=== PATIENT | male | born 1965 | race Two or more races ===

== ENCOUNTER 2020-01-27 18:52 | Inpatient (IN) | payer MEDICAID, OTHER ==
[~2020-01-27] VITALS: Ht 160 cm; Wt 75.1 kg
--- NOTE | 2020-01-27 18:51 | Emergency Room Report ---
History of Present Illness General Chief Complaint: General Complaint Source: Patient, Medical Record, PMD Present Illness HPI 54-year-old male history of head trauma, status post cranial evacuation, patient found to be hyponatremic now patient found to be potentially urinating more than usual they are concerned that patient may have developed diabetes insipidus, unknown alleviating factors aggravated by his head injury severity is moderate, constant patient was sent in by his PCP for evaluation and to have electrolyte checks. 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 - UNK Patient History Past Medical History: see triage record Reviewed Nursing Documentation: PMH: Agreed; PSxH: Agreed Review of Systems All Other Systems: negative except mentioned in HPI Physical Exam Vital Signs Date Time Temp Pulse Resp B/P (MAP) Pulse Ox O2 Delivery O2 Flow Rate FiO2 01/27/20 18:45 98.4 83 18 110/75 (87) 93 Room Air Sp02 EP Interpretation: reviewed, normal General Appearance: no apparent distress, alert Head: other - Dressing wound noted Eyes: bilateral eye PERRL, bilateral eye EOMI ENT: uvula midline, moist mucus membranes Neck: supple, supple/symm/no masses, other - Patient in a c-collar Respiratory: lungs clear, no respiratory distress, no retraction, no accessory muscle use Cardiovascular #1: normal peripheral pulses, regular rate, rhythm, no edema, no gallop, no murmur Gastrointestinal: non tender, soft, no guarding, no rebound Musculoskeletal: normal inspection Neurologic: alert, responsive Psychiatric: mood/affect normal Skin: no rash, warm/dry Medical Decision Making Diagnostic Impression: Primary Impression: Electrolyte abnormality Additional Impressions: Dehydration Cervical spine fracture Qualified Codes: S12.690G - Other displaced fracture of seventh cervical vertebra, subsequent encounter for fracture with delayed healing ER Course 54-year-old male presents with concerns for electrolyte abnormalities. Patient with chronic stable subdural known from [facility] Plan for admission, hydration, patient lytes will be continued to be followed given concerns for developing electrolyte abnormalities. Patient admitted to Dr. Krueger Laboratory Tests Test 01/27/20 19:00 01/27/20 19:48 White Blood Count 6.7 K/UL (4.8-10.8) Red Blood Count 3.43 M/UL (4.70-6.10) L Hemoglobin 9.9 G/DL (14.2-18.0) L Hematocrit 30.6 % (42.0-52.0) L Mean Corpuscular Volume 89 FL (80-99) Mean Corpuscular Hemoglobin 29.0 PG (27.0-31.0) Mean Corpuscular Hemoglobin Concent 32.5 G/DL (32.0-36.0) Red Cell Distribution Width 14.1 % (11.6-14.8) Platelet Count 613 K/UL (150-450) H Mean Platelet Volume 4.7 FL (6.5-10.1) L Neutrophils (%) (Auto) 60.7 % (45.0-75.0) Lymphocytes (%) (Auto) 24.8 % (20.0-45.0) Monocytes (%) (Auto) 6.6 % (1.0-10.0) Eosinophils (%) (Auto) 6.7 % (0.0-3.0) H Basophils (%) (Auto) 1.2 % (0.0-2.0) Sodium Level 135 MMOL/L (136-145) L Potassium Level 3.8 MMOL/L (3.5-5.1) Chloride Level 100 MMOL/L (98-107) Carbon Dioxide Level 29 MMOL/L (21-32) Anion Gap 7 mmol/L (5-15) Blood Urea Nitrogen 6 mg/dL (7-18) L Creatinine 0.9 MG/DL (0.55-1.30) Estimated Glomerular Filtration Rate > 60 mL/min (>60) Glucose Level 135 MG/DL (74-106) H Calcium Level 9.5 MG/DL (8.5-10.1) Phosphorus Level 4.1 MG/DL (2.5-4.9) Magnesium Level 2.1 MG/DL (1.8-2.4) Total Bilirubin 0.2 MG/DL (0.2-1.0) Aspartate Amino Transferase (AST) 24 U/L (15-37) Alanine Aminotransferase (ALT) 57 U/L (12-78) Alkaline Phosphatase 158 U/L (46-116) H Troponin I 0.000 ng/mL (0.000-0.056) Pro-B-Type Natriuretic Peptide 18 pg/mL (0-125) Total Protein 7.8 G/DL (6.4-8.2) Albumin 2.8 G/DL (3.4-5.0) L Globulin 5.0 g/dL Albumin/Globulin Ratio 0.6 (1.0-2.7) L Lipase 177 U/L (73-393) Thyroid Stimulating Hormone (TSH) 2.700 uiU/mL (0.358-3.740) Free Thyroxine 0.96 NG/DL (0.76-1.46) Free Triiodothyronine 1.8 pg/mL (2.3-4.2) L Cortisol Pending Urine Color Yellow Urine Appearance Slightly cloudy Urine pH 5 (4.5-8.0) Urine Specific [place] 1.025 (1.005-1.035) Urine Protein 1+ (NEGATIVE) H Urine Glucose (UA) Negative (NEGATIVE) Urine Ketones Negative (NEGATIVE) Urine Blood Negative (NEGATIVE) Urine Nitrite Negative (NEGATIVE) Urine Bilirubin Negative (NEGATIVE) Urine Urobilinogen 4 MG/DL (0.0-1.0) H Urine Leukocyte Esterase 1+ (NEGATIVE) H Urine RBC 0-2 /HPF (0 - 0) H Urine WBC 0-2 /HPF (0 - 0) Urine Squamous Epithelial Cells None /LPF (NONE/OCC) Urine Amorphous Sediment Moderate /LPF (NONE) H Urine Bacteria Few /HPF (NONE) Urine Mucus Many /LPF (NONE/OCC) H Urine Osmolality 825 mOsm/kg (429-449) H Urine Random Sodium 121 mmol/L (20-110) H Urine Potassium Timed 55 mmol/L (12-62) Microbiology Date/Time Source Procedure Growth Status 01/27/20 19:00 Nasopharynx SARS-CoV-2 RdRp Gene Assay - Final Complete EKG Diagnostic Results EKG Time: 19:07 EP Interpretation: NSR, rate 84, QTc 47, no acute ST elevations, normal axis Rhythm Strip Diag. Results Rhythm Strip Time: 19:16 EP Interpretation: yes Rate: 86 Rhythm: NSR, no PVC's, no ectopy Chest X-Ray Diagnostic Results Chest X-Ray Diagnostic Results : Chest X-Ray Ordered: Yes # of Views/Limited/Complete: 1 View Indication: Chest Pain EP Interpretation: Yes Interpretation: no consolidation, no effusion, no pneumothorax, no acute cardiopulmonary disease Impression: No acute disease Electronically Signed by: Ziyad Cantu MD CT/MRI/US Diagnostic Results CT/MRI/US Diagnostic Results : Impression CT C-spine: C7/T1 fracture Procedure: CT Head no Contrast EXAM: CT Head Without Intravenous Contrast CLINICAL HISTORY: PAIN TECHNIQUE: Axial computed tomography images of the head/brain without intravenous contrast. CTDI is 53.4 mGy and DLP is 1098.9 mGy-cm. One or more of the following dose reduction techniques were used: automated exposure control, adjustment of the mA and/or kV according to patient size, use of iterative reconstruction technique. COMPARISON: No relevant prior studies available. FINDINGS: Brain: No acute infarct or hemorrhage. Midline shift: Mild leftward midline shift of approximately 3 mm. Ventricles: Unremarkable. No ventriculomegaly. Bones/joints: Status post right craniectomy with cranioplasty. There is a small chronic subdural hematoma underlying the craniotomy defect measured to 7 mm. There is moderate amount of fluid and gas seen in internal and external to the cranioplasty. Suspected remote fracture involving the right frontal calvarium and superior right orbit. Suspect remote fracture involving the anterior and posterolateral right maxillary antrum. Soft tissues: Unremarkable. Sinuses: Mild mucosal thickening the paranasal sinuses. Mastoid air cells: Partial opacification of mastoid air cells. IMPRESSION: 1. Status post right craniectomy with cranioplasty. There is a small chronic subdural hematoma underlying the craniotomy defect measuring up to 7 mm. There is moderate amount of fluid and gas seen in internal and external to the cranioplasty. 2. Mild leftward midline shift of approximately 3 mm. Dictated By: Harsh Ellis MD Electronically Signed By: Harsh Ellis MD Signed Date/Time 01/27/202015 CC: Ziyad Cantu MD Last Vital Signs Date Time Temp Pulse Resp B/P (MAP) Pulse Ox O2 Delivery O2 Flow Rate FiO2 01/27/20 18:45 98.4 83 18 110/75 (87) 93 Room Air Disposition: ADMITTED INPATIENT Condition: Stable Ziyad Cantu MD Jan 27, 2020 18:51
[2020-01-27] MEDS ORDERED: ACETAMINOPHEN325 M1 ORAL (18:58)
[2020-01-27] MEDS ORDERED: TYLENOL EXTRA500 MG ORAL (18:58)
[2020-01-27] MEDS ORDERED: LEVETIRACETAM500 MG ORAL (18:58)
[2020-01-27] MEDS ORDERED: NORCO 5-325 TA1 EAC1 ORAL (18:58)
--- NOTE | 2020-01-27 19:05 | NUR ---
Nurse Note: Pt arrived by ambulance from [facility] s/p fall 3 weeks ago. 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 Pt stated he landed on his head and LOC. Pt arrived with yaya on RT side of head, c-collar. Pt was sent by Dr. Huertas for further evulation. IV esblashed RT AC 20 guage, blood collected and sent to lab. Urine pending. All safety measures met; will continue to redd.
[2020-01-27 19:10] LABS: BASOPHILS % (AUTO) 1.2 % (0.0-2.0); EOSINOPHILS % (AUTO) 6.7 % (0.0-3.0); HEMATOCRIT 30.6 % (42.0-52.0); HEMOGLOBIN 9.9 G/DL (14.2-18.0); LYMPHOCYTES % (AUTO) 24.8 % (20.0-45.0); MEAN CORPUSCULAR VOLUME 89 FL (80-99); MONOCYTES % (AUTO) 6.6 % (1.0-10.0); NEUTROPHILS % (AUTO) 60.7 % (45.0-75.0); PLATELET COUNT 613 K/UL (150-450); RED BLOOD COUNT 3.43 M/UL (4.70-6.10); RED CELL DISTRIBUTION WIDTH 14.1 % (11.6-14.8); WHITE BLOOD COUNT 6.7 K/UL (4.8-10.8)
[2020-01-27 19:15] VITALS: BP 110/75
[2020-01-27 19:25] LABS: ANION GAP 7 mmol/L (5-15); BLOOD UREA NITROGEN 6 mg/dL (7-18); CALCIUM 9.5 MG/DL (8.5-10.1); CARBON DIOXIDE 29 MMOL/L (21-32); CHLORIDE 100 MMOL/L (98-107); CREATININE 0.9 MG/DL (0.55-1.30); POTASSIUM 3.8 MMOL/L (3.5-5.1); SODIUM 135 MMOL/L (136-145)
[2020-01-27 19:39] LABS: ALANINE AMINOTRANSFERASE 57 U/L (12-78); ALBUMIN 2.8 G/DL (3.4-5.0); ALBUMIN/GLOBULIN RATIO 0.6 (1.0-2.7); ALKALINE PHOSPHATASE 158 U/L (46-116); ASPARTATE AMINO TRANSFERASE 24 U/L (15-37); BILIRUBIN,TOTAL 0.2 MG/DL (0.2-1.0); PHOSPHORUS 4.1 MG/DL (2.5-4.9)
[2020-01-27 19:55] LABS: APPEARANCE,URINE SLIGHTLY CLOUDY; BILIRUBIN, URINE NEGATIVE (NEGATIVE); GLUCOSE, URINE (UA) NEGATIVE (NEGATIVE); KETONES,URINE NEGATIVE (NEGATIVE); LEUKOCYTE ESTERASE ,URINE 1+ (NEGATIVE); NITRITE,URINE NEGATIVE (NEGATIVE); PH,URINE 5 (4.5-8.0); PROTEIN,URINE 1+ (NEGATIVE); UROBILINOGEN,URINE 4 MG/DL (0.0-1.0)
[2020-01-27 19:57] LABS: COLOR,URINE YELLOW
--- NOTE | 2020-01-27 20:17 | Diagnostic Imaging Report ---
EXAM: CT Head Without Intravenous Contrast CLINICAL HISTORY: PAIN TECHNIQUE: Axial computed tomography images of the head/brain without intravenous contrast. CTDI is 53.4 mGy and DLP is 1098.9 mGy-cm. One or more of the following dose reduction techniques were used: automated exposure control, adjustment of the mA and/or kV according to patient size, use of iterative reconstruction technique. COMPARISON: No relevant prior studies available. FINDINGS: Brain: No acute infarct or hemorrhage. Midline shift: Mild leftward midline shift of approximately 3 mm. Ventricles: Unremarkable. No ventriculomegaly. Bones/joints: Status post right craniectomy with cranioplasty. There is a small chronic subdural hematoma underlying the craniotomy defect measured to 7 mm. There is moderate amount of fluid and gas seen in internal and external to the cranioplasty. Suspected remote fracture involving the right frontal calvarium and superior right orbit. Suspect remote fracture involving the anterior and posterolateral right maxillary antrum. Soft tissues: Unremarkable. Sinuses: Mild mucosal thickening the paranasal sinuses. Mastoid air cells: Partial opacification of mastoid air cells. IMPRESSION: 1. Status post right craniectomy with cranioplasty. There is a small chronic subdural hematoma underlying the craniotomy defect measuring up to 7 mm. There is moderate amount of fluid and gas seen in internal and external to the cranioplasty. 2. Mild leftward midline shift of approximately 3 mm.
--- NOTE | 2020-01-27 20:19 | Diagnostic Imaging Report ---
ADDENDUM - Added by Harsh Ellis MD on 01/27/2020 8:39 PM (-07:00) Fracture of the spinous process at C7 and T1. EXAM: CT Cervical Spine Without Intravenous Contrast CLINICAL HISTORY: PAIN TECHNIQUE: Axial computed tomography images of the cervical spine without intravenous contrast. CTDI is 53.40 mGy and DLP is 1098.90 mGy-cm. One or more of the following dose reduction techniques were used: automated exposure control, adjustment of the mA and/or kV according to patient size, use of iterative reconstruction technique. COMPARISON: No relevant prior studies available. FINDINGS: Vertebrae: No acute fracture or traumatic malalignment. Straightening of the normal cervical lordosis, likely positional. Discs/spinal canal/neural foramina: No acute findings. No significant spinal canal or neuroforaminal stenosis. Soft tissues: Unremarkable. IMPRESSION: No acute findings in the cervical spine. <MYCVCSECTION> Communications: 01/27/20 20:37 Call From [facility] on 01/26 20:36 (-07:00) 01/27/20 20:42 Verify Receipt Verified receipt with NIGHAT CANNON in the ER for DR PADILLA on 01/26 20:42 (-07:00)
--- NOTE | 2020-01-27 20:42 | Consultation ---
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 He had~multiple cortes to bilateral forearms (right >~left), anterior neck and face. Had a right epidural hematoma on CT scan. Taken to OR at [facility] for R decompressive hemicraniectomy and evacuation of hematoma. [facility] bone [facility]. He became hypotensive and coded intraoperatively - CPR was performed and after successful resuscitation the patient was transferred to the SICU in stable condition.~The patient's post operative course was unremarkable for any complications.~He was extubated on 01/06/2020 and was transferred from the SICU to the surgical floor on 01/11/2020. He progressed well and was taken back to the OR on 01/14/2020 for right-sided cranioplasty. The patient tolerated this procedure well and was transferred back to the floor in stable condition. He remained in cervical c-collar given his cervical spine fractures. Patient was subsequently discharged on~01/16/2020~in stable condition He started to become confused, reporting headache and dizziness, was found to be hyponatremic. Patient reports urinating all the time. Feels lightheaded. Remains on C collar Allergies: Coded Allergies: No Known Allergies (Unverified , 01/27/20) Medication History Scheduled Levetiracetam* (Levetiracetam*), 500 MG ORAL TWICE A DAY, (Reported) Scheduled PRN Acetaminophen* (Tylenol Extra Strength*), 500 MG ORAL Q6H PRN for Mild Pain/ Temp > 100.5, (Reported) Hydrocodone Bit/Acetaminophen 5-325* ([place] 5-325 Tablet*), 1 TAB ORAL Q6H PRN for FOR PAIN, (Reported) Patient History Healthcare decision maker Resuscitation status Advanced Directive on File Physical Exam General Appearance: no apparent distress Lines, tubes and drains: peripheral HEENT: normocephalic Neck: supple, muscle spasm, pain on motion, tenderness Respiratory/Chest: chest wall non-tender, lungs clear Cardiovascular/Chest: normal peripheral pulses Abdomen: normal bowel sounds Extremities: normal range of motion Skin Exam: normal pigmentation 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, no motor/sensory deficits Musculoskeletal: normal muscle bulk Last 24 Hour Vital Signs Date Time Temp Pulse Resp B/P (MAP) Pulse Ox O2 Delivery O2 Flow Rate FiO2 01/27/20 19:15 98.4 83 18 110/75 93 Room Air 01/27/20 19:15 83 18 Room Air 01/27/20 18:45 98.4 83 18 110/75 (87) 93 Room Air Laboratory Tests Test 01/27/20 19:00 01/27/20 19:48 White Blood Count 6.7 K/UL (4.8-10.8) Red Blood Count 3.43 M/UL (4.70-6.10) L Hemoglobin 9.9 G/DL (14.2-18.0) L Hematocrit 30.6 % (42.0-52.0) L Mean Corpuscular Volume 89 FL (80-99) Mean Corpuscular Hemoglobin 29.0 PG (27.0-31.0) Mean Corpuscular Hemoglobin Concent 32.5 G/DL (32.0-36.0) Red Cell Distribution Width 14.1 % (11.6-14.8) Platelet Count 613 K/UL (150-450) H Mean Platelet Volume 4.7 FL (6.5-10.1) L Neutrophils (%) (Auto) 60.7 % (45.0-75.0) Lymphocytes (%) (Auto) 24.8 % (20.0-45.0) Monocytes (%) (Auto) 6.6 % (1.0-10.0) Eosinophils (%) (Auto) 6.7 % (0.0-3.0) H Basophils (%) (Auto) 1.2 % (0.0-2.0) Sodium Level 135 MMOL/L (136-145) L Potassium Level 3.8 MMOL/L (3.5-5.1) Chloride Level 100 MMOL/L (98-107) Carbon Dioxide Level 29 MMOL/L (21-32) Anion Gap 7 mmol/L (5-15) Blood Urea Nitrogen 6 mg/dL (7-18) L Creatinine 0.9 MG/DL (0.55-1.30) Estimat Glomerular Filtration Rate > 60 mL/min (>60) Glucose Level 135 MG/DL (74-106) H Calcium Level 9.5 MG/DL (8.5-10.1) Phosphorus Level 4.1 MG/DL (2.5-4.9) Magnesium Level 2.1 MG/DL (1.8-2.4) Total Bilirubin 0.2 MG/DL (0.2-1.0) Aspartate Amino Transf (AST/SGOT) 24 U/L (15-37) Alanine Aminotransferase (ALT/SGPT) 57 U/L (12-78) Alkaline Phosphatase 158 U/L (46-116) H Troponin I 0.000 ng/mL (0.000-0.056) Pro-B-Type Natriuretic Peptide 18 pg/mL (0-125) Total Protein 7.8 G/DL (6.4-8.2) Albumin 2.8 G/DL (3.4-5.0) L Globulin 5.0 g/dL Albumin/Globulin Ratio 0.6 (1.0-2.7) L Lipase 177 U/L (73-393) Thyroid Stimulating Hormone (TSH) 2.700 uiU/mL (0.358-3.740) Free Thyroxine 0.96 NG/DL (0.76-1.46) Free Triiodothyronine 1.8 pg/mL (2.3-4.2) L Cortisol Pending Urine Color Yellow Urine Appearance Slightly cloudy Urine pH 5 (4.5-8.0) Urine Specific [place] 1.025 (1.005-1.035) Urine Protein 1+ (NEGATIVE) H Urine Glucose (UA) Negative (NEGATIVE) Urine Ketones Negative (NEGATIVE) Urine Blood Negative (NEGATIVE) Urine Nitrite Negative (NEGATIVE) Urine Bilirubin Negative (NEGATIVE) Urine Urobilinogen 4 MG/DL (0.0-1.0) H Urine Leukocyte Esterase 1+ (NEGATIVE) H Urine RBC 0-2 /HPF (0 - 0) H Urine WBC 0-2 /HPF (0 - 0) Urine Squamous Epithelial Cells None /LPF (NONE/OCC) Urine Amorphous Sediment Moderate /LPF (NONE) H Urine Bacteria Few /HPF (NONE) Urine Mucus Many /LPF (NONE/OCC) H Urine Osmolality 825 mOsm/kg (429-449) H Urine Random Sodium 121 mmol/L (20-110) H Urine Potassium Timed 55 mmol/L (12-62) Microbiology Date/Time Source Procedure Growth Status 7/27/20 19:00 Nasopharynx SARS-CoV-2 RdRp Gene Assay - Final Complete Height (Feet): 5 Height (Inches): 3.00 Weight (Pounds): 175 Objective Narrative Tenderness in cervical paraspinal muscles Tinel positive on mariya occipital notch Assessment/Plan Problem List: (1) Electrolyte abnormality ICD Codes: E87.8 - Other disorders of electrolyte and fluid balance, not elsewhere classified SNOMED: 359719750 (2) Cervical spine fracture ICD Codes: S12.9XXA - Fracture of neck, unspecified, initial encounter SNOMED: 319906990 Qualifiers: Qualified Codes: S12.690G - Other displaced fracture of seventh cervical vertebra, subsequent encounter for fracture with delayed healing (3) Dehydration ICD Codes: E86.0 - Dehydration SNOMED: 06337937 (4) Pain ICD Codes: R52 - Pain, unspecified SNOMED: 26027141 Assessment/Plan: IMPRESSION: 1. PTRAUMATIC BRAIN INJURY WITH TRAUMATIC EPIDURAL HEMORRHAGE, HEMORRHAGIC CONTUSSION 2.. POSTCONCUSSIVE SYNDROME 3.. TRAUMATIC DISEQUELIBRIUM SYNDROME 4.. POSTCONCUSSIVE HEADACHE 5.. OCCIPITAL NEURALGIA, BILATERAL 6.. NECK SPASMS WITH BILLATERAL PARESTHESIAS R/O RADICULOPATHY 7. ENCEPHALOPATHY 2/2 HYPONATREMIA. Based on the mechanism of injury and denial of previous injury with high medical probability, the accident was the cause of the injury and related symptoms. RECOMMENDATIONS: 1. IVFs and sodium management per nephrology. 2. maintain hydration 3. Monitor orthostatics 4.. Greater and lesser occipital nerve block and Trigger point injections 5. Advance MRI technique including 3 Ericka MRI of the brain without contrast with SWI and DTI and volumetric analysis 6. VAT combo with ENG and vestibular exercises Ziyad Baltazar MD Jan 27, 2020 20:42
--- NOTE | 2020-01-27 21:00 | NUR ---
ED Nurse Note: Pt's own medication placed in lock box and signed into log, endorsed to ELICIA Boles
--- NOTE | 2020-01-27 21:05 | NUR ---
TRANSFER TO FLOOR: Patient transferred to as ordered, per Dr Krueger. Report given to ELICIA Boles. Belongings and medications given to . Family and or S/O informed of transfer.
[2020-01-27 21:40] VITALS: BP 111/65
[2020-01-27] MEDS ORDERED: Docusate 100mg cap ORAL PRN (21:45)
--- NOTE | 2020-01-27 21:50 | NUR ---
NURSE NOTES: Received report from ELICIA Odonnell. Patient arrived from ED via gurney. A&Ox4. On room air with no signs of distress or SOB. VSS. Right AC IV intact and patent. Patient is ambulatory. Post-surgical dressings noted on scalp. Healing electrical cortes/scars on bilat forearms. Skin tear on R lower back noted. Home meds sent to pharmacy per ELICIA Odonnell. Belongings accounted for. Bed locked and in lowest position. Call light in reach. Orders received from Dr. Krueger. Will follow plan of care.
[2020-01-28] VITALS: BP 124/71
[2020-01-28 04:00] VITALS: BP 118/76
--- NOTE | 2020-01-28 07:04 | NUR ---
NURSE NOTES: Patient output this morning 250cc. Performed bladder scan which showed 13mL. Spoke with Dr. Krueger. New orders carried out.
--- NOTE | 2020-01-28 07:35 | NUR ---
NURSE NOTES: WALKING ROUNDS DONE WITH NIGHT RN. PATIENT ASLEEP BUT AROUSABLE. HEAD DRSG IN PLACE WITH MESH; C/D/I. DENIES PAIN. DISCUSSED PLAN OF CARE FOR THE DAY. VERBALIZED UNDERSTANDING.BED IN LOW AND LOCKED POSITION. SIDE RAILS PADDED. NO EVIDENCE OF SEIZURE ACTIVITY THUS FAR.
--- NOTE | 2020-01-28 07:39 | NUR ---
HAND-OFF: Report given to ELICIA Yusuf.
[2020-01-28 08:00] VITALS: BP 102/66
[2020-01-28 08:49] LABS: BASOPHILS % (AUTO) 1.2 % (0.0-2.0); EOSINOPHILS % (AUTO) 6.1 % (0.0-3.0); HEMATOCRIT 31.7 % (42.0-52.0); LYMPHOCYTES % (AUTO) 14.3 % (20.0-45.0); MEAN CORPUSCULAR VOLUME 90 FL (80-99); MONOCYTES % (AUTO) 6.5 % (1.0-10.0); NEUTROPHILS % (AUTO) 71.9 % (45.0-75.0); PLATELET COUNT 569 K/UL (150-450); RED BLOOD COUNT 3.53 M/UL (4.70-6.10); RED CELL DISTRIBUTION WIDTH 13.3 % (11.6-14.8); WHITE BLOOD COUNT 6.1 K/UL (4.8-10.8)
[2020-01-28] MEDS ORDERED: HYDROcodone/Acetamin 5/325 tab ORAL PRN (09:00)
[2020-01-28 09:07] LABS: ALANINE AMINOTRANSFERASE 54 U/L (12-78); ALBUMIN 2.6 G/DL (3.4-5.0); ALBUMIN/GLOBULIN RATIO 0.5 (1.0-2.7); ALKALINE PHOSPHATASE 141 U/L (46-116); ANION GAP 10 mmol/L (5-15); ASPARTATE AMINO TRANSFERASE 18 U/L (15-37); BILIRUBIN,TOTAL 0.3 MG/DL (0.2-1.0); BLOOD UREA NITROGEN 5 mg/dL (7-18); CALCIUM 9.1 MG/DL (8.5-10.1); CARBON DIOXIDE 25 MMOL/L (21-32); CHLORIDE 99 MMOL/L (98-107); CREATININE 0.8 MG/DL (0.55-1.30); POTASSIUM 3.7 MMOL/L (3.5-5.1); SODIUM 134 MMOL/L (136-145)
[2020-01-28 09:28] LABS: PHOSPHORUS 4.2 MG/DL (2.5-4.9)
--- NOTE | 2020-01-28 10:12 | Diagnostic Imaging Report ---
Procedure: XRAY Chest 1v Reason for study: Preop. Cough. Comparison films: None. FINDINGS: A single one view chest is obtained. Vascularity is normal. There is minimal densities lateral left lung base perhaps mild atelectasis. Cardiac and mediastinal silhouette are within normal limits. CP angles are sharp. The bony thorax appear unremarkable. IMPRESSION: Mild atelectasis lateral left lung base.
[2020-01-28 10:25] LABS: FERRITIN 95 NG/ML (8-388)
--- NOTE | 2020-01-28 10:48 | Consultation ---
Consult Note Consult Note Asked to evaluate the patient at the request of Dr. Krueger for excess urination 54-year-old male history of head trauma, status post cranial evacuation, patient found to be hyponatremic now patient found to be potentially urinating more than usual they are concerned that patient may have developed diabetes insipidus, unknown alleviating factors aggravated by his head injury severity is moderate, constant patient was sent in by his PCP for evaluation and to have electrolyte checks. 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 Patient examined Labs reviewed Vital Signs Date Time Temp Pulse Resp B/P (MAP) Pulse Ox O2 Delivery O2 Flow Rate FiO2 01/27/20 18:45 98.4 83 18 110/75 (87) 93 Room Air Sp02 EP Interpretation: reviewed, normal General Appearance: no apparent distress, alert Head: other - Dressing wound noted Eyes: bilateral eye PERRL, bilateral eye EOMI ENT: uvula midline, moist mucus membranes Neck: supple, supple/symm/no masses, other - Patient in a c-collar Respiratory: lungs clear, no respiratory distress, no retraction, no accessory muscle use Cardiovascular #1: normal peripheral pulses, regular rate, rhythm, no edema, no gallop, no murmur Gastrointestinal: non tender, soft, no guarding, no rebound Musculoskeletal: normal inspection Neurologic: alert, responsive Psychiatric: mood/affect normal Skin: no rash, warm/dry . Assessment/Plan Diabetes insipidus Recent fall from height and brain injury requiring brain surgery at [facility] Electrolyte abnormalities Anemia Suggestion: Keep hydrated Desmopressin nasal spray Strict intake and output Monitor electrolytes Anemia work-up Per orders Sung Ruiz MD Jan 28, 2020 10:48
[2020-01-28 11:00] LABS: % IRON SATURATION 12 % (15-50); IRON 33 ug/dL (50-175); TOTAL IRON BINDING CAPACITY 278 ug/dL (250-450)
--- NOTE | 2020-01-28 11:32 | NUR ---
P.T Note: P.T consult received. P.T evaluation completed. Please refer to P.T evaluation for full report.
[2020-01-28 11:38] VITALS: BP 112/71
--- NOTE | 2020-01-28 11:49 | Diagnostic Imaging Report ---
EXAM: ULTRASOUND Venous Duplex Scan Morgan Leg CLINICAL HISTORY: Leg pain and edema. COMPARISON: None TECHNIQUE: Doppler examination include grayscale images obtained with and without compression, and color and spectral doppler analysis. FINDINGS: Doppler examination shows normal spontaneity, phasicity, compressibility in the bilateral lower extremities. There is no thrombus identified by grayscale. Normal color and spectral flow is identified. There is no evidence of valvular incompetency or insufficiency. IMPRESSION: UNREMARKABLE VENOUS DUPLEX.
[2020-01-28] MEDS ORDERED: NaCl 3% 500ml 250 ML IV SCH (12:00)
--- NOTE | 2020-01-28 12:22 | Neurology Progress Note ---
Interim History Interim History Interim History Has not been able to ambulate yet. Still dizzy, NA low. Pending PT Objective Physical Exam Last Vital Signs Date Time Temp Pulse Resp B/P (MAP) Pulse Ox O2 Delivery O2 Flow Rate FiO2 01/28/20 11:38 97.1 73 18 112/71 (85) 99 01/28/20 09:00 Room Air Laboratory Tests Test 01/27/20 19:00 01/27/20 19:48 01/28/20 08:15 White Blood Count 6.7 K/UL (4.8-10.8) 6.1 K/UL (4.8-10.8) Red Blood Count 3.43 M/UL (4.70-6.10) L 3.53 M/UL (4.70-6.10) L Hemoglobin 9.9 G/DL (14.2-18.0) L 10.0 G/DL (14.2-18.0) L Hematocrit 30.6 % (42.0-52.0) L 31.7 % (42.0-52.0) L Mean Corpuscular Volume 89 FL (80-99) 90 FL (80-99) Mean Corpuscular Hemoglobin 29.0 PG (27.0-31.0) 28.3 PG (27.0-31.0) Mean Corpuscular Hemoglobin Concent 32.5 G/DL (32.0-36.0) 31.5 G/DL (32.0-36.0) L Red Cell Distribution Width 14.1 % (11.6-14.8) 13.3 % (11.6-14.8) Platelet Count 613 K/UL (150-450) H 569 K/UL (150-450) H Mean Platelet Volume 4.7 FL (6.5-10.1) L 4.6 FL (6.5-10.1) L Neutrophils (%) (Auto) 60.7 % (45.0-75.0) 71.9 % (45.0-75.0) Lymphocytes (%) (Auto) 24.8 % (20.0-45.0) 14.3 % (20.0-45.0) L Monocytes (%) (Auto) 6.6 % (1.0-10.0) 6.5 % (1.0-10.0) Eosinophils (%) (Auto) 6.7 % (0.0-3.0) H 6.1 % (0.0-3.0) H Basophils (%) (Auto) 1.2 % (0.0-2.0) 1.2 % (0.0-2.0) Sodium Level 135 MMOL/L (136-145) L 134 MMOL/L (136-145) L Potassium Level 3.8 MMOL/L (3.5-5.1) 3.7 MMOL/L (3.5-5.1) Chloride Level 100 MMOL/L (98-107) 99 MMOL/L (98-107) Carbon Dioxide Level 29 MMOL/L (21-32) 25 MMOL/L (21-32) Anion Gap 7 mmol/L (5-15) 10 mmol/L (5-15) Blood Urea Nitrogen 6 mg/dL (7-18) L 5 mg/dL (7-18) L Creatinine 0.9 MG/DL (0.55-1.30) 0.8 MG/DL (0.55-1.30) Estimat Glomerular Filtration Rate > 60 mL/min (>60) > 60 mL/min (>60) Glucose Level 135 MG/DL (74-106) H 129 MG/DL (74-106) H Calcium Level 9.5 MG/DL (8.5-10.1) 9.1 MG/DL (8.5-10.1) Phosphorus Level 4.1 MG/DL (2.5-4.9) 4.2 MG/DL (2.5-4.9) Magnesium Level 2.1 MG/DL (1.8-2.4) 1.8 MG/DL (1.8-2.4) Total Bilirubin 0.2 MG/DL (0.2-1.0) 0.3 MG/DL (0.2-1.0) Aspartate Amino Transf (AST/SGOT) 24 U/L (15-37) 18 U/L (15-37) Alanine Aminotransferase (ALT/SGPT) 57 U/L (12-78) 54 U/L (12-78) Alkaline Phosphatase 158 U/L (46-116) H 141 U/L (46-116) H Troponin I 0.000 ng/mL (0.000-0.056) Pro-B-Type Natriuretic Peptide 18 pg/mL (0-125) Total Protein 7.8 G/DL (6.4-8.2) 7.4 G/DL (6.4-8.2) Albumin 2.8 G/DL (3.4-5.0) L 2.6 G/DL (3.4-5.0) L Globulin 5.0 g/dL 4.8 g/dL Albumin/Globulin Ratio 0.6 (1.0-2.7) L 0.5 (1.0-2.7) L Lipase 177 U/L (73-393) Thyroid Stimulating Hormone (TSH) 2.700 uiU/mL (0.358-3.740) Free Thyroxine 0.96 NG/DL (0.76-1.46) Free Triiodothyronine 1.8 pg/mL (2.3-4.2) L Cortisol Pending Urine Color Yellow Urine Appearance Slightly cloudy Urine pH 5 (4.5-8.0) Urine Specific [place] 1.025 (1.005-1.035) Urine Protein 1+ (NEGATIVE) H Urine Glucose (UA) Negative (NEGATIVE) Urine Ketones Negative (NEGATIVE) Urine Blood Negative (NEGATIVE) Urine Nitrite Negative (NEGATIVE) Urine Bilirubin Negative (NEGATIVE) Urine Urobilinogen 4 MG/DL (0.0-1.0) H Urine Leukocyte Esterase 1+ (NEGATIVE) H Urine RBC 0-2 /HPF (0 - 0) H Urine WBC 0-2 /HPF (0 - 0) Urine Squamous Epithelial Cells None /LPF (NONE/OCC) Urine Amorphous Sediment Moderate /LPF (NONE) H Urine Bacteria Few /HPF (NONE) Urine Mucus Many /LPF (NONE/OCC) H Urine Osmolality 825 mOsm/kg (429-449) H Urine Random Sodium 121 mmol/L (20-110) H Urine Potassium Timed 55 mmol/L (12-62) Osmolality 282 mOsm/kg (297-317) L Uric Acid 2.7 MG/DL (2.6-7.2) Iron Level 33 ug/dL (50-175) L Total Iron Binding Capacity 278 ug/dL (250-450) Percent Iron Saturation 12 % (15-50) L Unsaturated Iron Binding 245 ug/dL (112-346) Ferritin 95 NG/ML (8-388) Vitamin B12 Level 917 PG/ML (193-986) Folate 33.6 NG/ML (8.6-58.9) Impression/Recommendations Problems: (1) Electrolyte abnormality (2) Cervical spine fracture (3) Dehydration (4) Pain Ziyad Baltazar MD Jan 28, 2020 12:22
[2020-01-28] MEDS: Docusate 100mg cap ORAL SCH ×2 (12:43→18:05)
[2020-01-28 15:49] VITALS: BP 102/65
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
[2020-01-28] MEDS: HYDROcodone/Acetamin 5/325 tab ORAL PRN (16:29)
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
[2020-01-28] MEDS ORDERED: Desmopressin Nasal 5ml NASAL SCH (18:00)
--- NOTE | 2020-01-28 19:50 | NUR ---
HAND-OFF: Report given to JANENE BARRERA RN.
--- NOTE | 2020-01-28 19:58 | NUR ---
NURSE NOTES: Report received from ELICIA Yusuf. Patient in stable condition
[2020-01-28 20:00] VITALS: BP 123/79
[2020-01-28 22:00] LABS: APPEARANCE,URINE CLOUDY; BILIRUBIN, URINE NEGATIVE (NEGATIVE); GLUCOSE, URINE (UA) NEGATIVE (NEGATIVE); KETONES,URINE NEGATIVE (NEGATIVE); LEUKOCYTE ESTERASE ,URINE NEGATIVE (NEGATIVE); NITRITE,URINE NEGATIVE (NEGATIVE); PH,URINE 7 (4.5-8.0); PROTEIN,URINE NEGATIVE (NEGATIVE); UROBILINOGEN,URINE 8 MG/DL (0.0-1.0)
[2020-01-28 22:01] LABS: COLOR,URINE YELLOW
[2020-01-29] VITALS: BP 104/70
[2020-01-29 04:00] VITALS: BP 116/73
[2020-01-29 05:59] LABS: BASOPHILS % (AUTO) 1.2 % (0.0-2.0); EOSINOPHILS % (AUTO) 9.4 % (0.0-3.0); HEMATOCRIT 30.4 % (42.0-52.0); HEMOGLOBIN 9.5 G/DL (14.2-18.0); LYMPHOCYTES % (AUTO) 20.6 % (20.0-45.0); MEAN CORPUSCULAR VOLUME 90 FL (80-99); MONOCYTES % (AUTO) 8.2 % (1.0-10.0); NEUTROPHILS % (AUTO) 60.6 % (45.0-75.0); PLATELET COUNT 509 K/UL (150-450); RED BLOOD COUNT 3.39 M/UL (4.70-6.10); RED CELL DISTRIBUTION WIDTH 13.1 % (11.6-14.8); WHITE BLOOD COUNT 5.2 K/UL (4.8-10.8)
[2020-01-29 06:13] LABS: ALANINE AMINOTRANSFERASE 41 U/L (12-78); ALBUMIN 2.7 G/DL (3.4-5.0); ALBUMIN/GLOBULIN RATIO 0.6 (1.0-2.7); ALKALINE PHOSPHATASE 134 U/L (46-116); ANION GAP 9 mmol/L (5-15); ASPARTATE AMINO TRANSFERASE 15 U/L (15-37); BILIRUBIN,TOTAL 0.2 MG/DL (0.2-1.0); BLOOD UREA NITROGEN 6 mg/dL (7-18); CALCIUM 9.3 MG/DL (8.5-10.1); CARBON DIOXIDE 27 MMOL/L (21-32); CHLORIDE 111 MMOL/L (98-107); CHOLESTEROL 188 MG/DL (< 200); CREATININE 0.7 MG/DL (0.55-1.30); GAMMA GLUTAMYL TRANSPEPTIDASE 112 U/L (5-85); HDL CHOLESTEROL 40 MG/DL (40-60); PHOSPHORUS 4.3 MG/DL (2.5-4.9); POTASSIUM 4.4 MMOL/L (3.5-5.1); SODIUM 147 MMOL/L (136-145); TRIGLYCERIDES 139 MG/DL (30-150)
[2020-01-29 08:00] VITALS: BP 106/69
--- NOTE | 2020-01-29 08:15 | Progress Note ---
DATE: 01/28/2020 HISTORY OF PRESENT ILLNESS: This unfortunate male was admitted with multiple issues. The patient was seen and evaluated by neurologist and aircraft engine installer. CURRENT MEDICATIONS: The patient is on Protonix. Desmopressin started one time twice a day . Crawford, amlodipine, sulfasalazine, Keppra, Tylenol, docusate, Pepcid, magnesium oxide, and Zofran. PHYSICAL EXAMINATION: VITAL SIGNS: Temperature 98.9, heart rate 57, respiratory rate 20, and blood pressure 123/79 with a pulse oximetry 95% on room air. HEENT: Patient has multiple sites, none of them are draining. Right eye has ptosis. HEART: S1, S2. LUNGS: Clear. ABDOMEN: Soft. The patient has , but he is wearing a hard cervical collar. LABORATORY DATA: Lab was obtained on the patient shows a white blood cell count of 6.1, hematocrit of 31.7, and platelets of 569. Urine, there was 1+ protein. Moderate amorphous sediment. Many . Urine osmolality 825. iron to be low at 33 with iron binding saturation 12, which is low as well. B12 and folate is normal. Urine osmolality is . Sodium 134, potassium 3.7, chloride 99, bicarb 25, BUN 5, creatinine 0.8, and glucose is 129. Alk phos is slightly elevated at 141 will be inspected. Venous Doppler that was obtained on patient's bilateral lower extremities, he has no DVT. The patient has pain and has been started on Crawford. IMPRESSION AND PLAN: 1. Neurology consult was obtained and the patient was reviewed. 2. Discussed with neurologist. 3. Case discussed with aircraft engine installer. 4. Monitor sodium. 5. He was started on desmopressin. We need to make sure patient does not end up having hypernatremia . 6. Monitor the patient closely. PT, OT, Speech to evaluate the patient. 7. Further testing to be done. 8. Discussed with Neurology. 9. Discussed with Nephrology. Joaquin Krueger M.D. DR: Nabila JOB#: [id number] CC:
[2020-01-29] MEDS: Docusate 100mg cap ORAL SCH ×3 (08:56→17:35)
[2020-01-29] MEDS: HYDROcodone/Acetamin 5/325 tab ORAL PRN ×2 (08:56→17:40)
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
[2020-01-29 12:00] VITALS: BP 112/67
[2020-01-29] MEDS ORDERED: HydrALAZINE 25mg tab ORAL PRN (12:00)
[2020-01-29 16:00] VITALS: BP 110/74
--- NOTE | 2020-01-29 16:50 | NUR ---
HAND-OFF: Report given to Km RN, pt stable
--- NOTE | 2020-01-29 17:06 | NUR ---
NURSE NOTES: Received report from ELICIA Corrales. Patient in bed, AAOx4, serbian speaking, on room air, and ambulatory. Patient has cervical collar on, wound dressing is dry and intact. Patient denies any pain or SOB noted at this time. Iv site patent and intact. RN instructed patient to use call light if feeling dizzy or weak before ambulating. Bed is locked and placed in lowest position, call light within reach. Will continue to monitor
--- NOTE | 2020-01-29 17:09 | NUR ---
CASE MANAGEMENT:REVIEW 01/29/20 SI:PAIN . DEHYDRATION. ELECTROLYTE ABNORMALITY . CERVICAL SPIN FRACTURE DIABETES INSIPIDUS 97.9 75 17 110/74 98% ON RA H/H 9.5/30.4 PLT 509 NA+147 BUN 6 URIC ACID 2.5 ALB 2.7 C-REC PROT QUANT 1.0 IS:KEPPRA PO BID PROTONIX PO BID COLACE PO TID NORCO Q6HR/PRN SILVADENE CREAM TO BID \: 3E MED SURG UNIT DCP: [facility] WHEN STABLE PLAN: STOP DESMOPRESSIN AND URINE STUDY ORDERED MONITOR FOR LOW BP
--- NOTE | 2020-01-29 17:17 | NUR ---
NURSE NOTES: Received report from Flaquito RN, rounds made pt awake and having breakfast , pt c/o headache 12/10, will provide medication as ordered , encouraged to void in the urinal for accurate monitoring of output due to low urine output, pt has a R AC 20G locked, bed in low locked position, side rails upX2 call light with in reach will continue to monitor
--- NOTE | 2020-01-29 19:20 | NUR ---
HAND-OFF: Report given to ELICIA Ortiz.
--- NOTE | 2020-01-29 19:43 | NUR ---
NURSE NOTES: Report received from ELICIA Barbour. Patient in stable condition. Denies any pain as of the moment.
[2020-01-29 20:00] VITALS: BP 119/76
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
[2020-01-30] VITALS: BP 108/61
[2020-01-30 04:00] VITALS: BP 98/65
[2020-01-30] MEDS: HYDROcodone/Acetamin 5/325 tab ORAL PRN ×2 (04:32→17:07)
[2020-01-30 06:23] LABS: ALANINE AMINOTRANSFERASE 40 U/L (12-78); ALBUMIN 2.6 G/DL (3.4-5.0); ALBUMIN/GLOBULIN RATIO 0.6 (1.0-2.7); ALKALINE PHOSPHATASE 126 U/L (46-116); ANION GAP 8 mmol/L (5-15); ASPARTATE AMINO TRANSFERASE 14 U/L (15-37); BILIRUBIN,TOTAL 0.3 MG/DL (0.2-1.0); BLOOD UREA NITROGEN 5 mg/dL (7-18); CALCIUM 8.7 MG/DL (8.5-10.1); CARBON DIOXIDE 26 MMOL/L (21-32); CHLORIDE 99 MMOL/L (98-107); CREATININE 0.8 MG/DL (0.55-1.30); PHOSPHORUS 3.8 MG/DL (2.5-4.9); POTASSIUM 3.7 MMOL/L (3.5-5.1); SODIUM 133 MMOL/L (136-145)
--- NOTE | 2020-01-30 07:10 | NUR ---
HAND-OFF: Report given to .ELICIA Corrales
--- NOTE | 2020-01-30 07:16 | NUR ---
NURSE NOTES: Received report from Flaquito RUBI, rounds made pt sleeping with no s/s of respiratory distress, pt has still has yaya in the head and a dry 4x4 Amilcar with stockinet , Pt has a R AC 20G locked, bed in low locked position, side rails upX2 call light with in reach will continue to monitor
[2020-01-30 08:00] VITALS: BP 105/70
[2020-01-30] MEDS: Milk of Magnesia 30ml Ud ORAL PRN (08:00)
[2020-01-30] MEDS: Docusate 100mg cap ORAL SCH ×3 (08:00→17:01)
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
[2020-01-30] MEDS ORDERED: Iron Sucrose 200 MG in NS 110 ML IV ONE (11:00)
[2020-01-30 12:00] VITALS: BP 104/67
[2020-01-30 16:00] VITALS: BP 104/66
--- NOTE | 2020-01-30 16:22 | NUR ---
CASE MANAGEMENT:REVIEW 01/30/20 SI:FLUID RESTRICTION . ELECTROLYTE ABNORMALITY . DEHYDRATION. ANEMIA . CERVICAL SPIN FRACTURE SIAHD ~LIKELY 98.8 69 16 104/66 96% ON RA NA+ 133 OSMO 278 URIC ACID 2.5 ALB 2.6 IS:KEPPRA PO BID PROTONIX PO BID COLACE PO TID NORCO Q6HR/PRN SILVADENE CREAM TO BID IV VENOFER QHS X5 BAGS \: 3E MED SURG UNIT DCP: HARBOR POST ACUTE WHEN STABLE PLAN: NA RANDOM URINE~IN PROCESS FLUID RESTRICTION START ON VENOFER FOR LOW IRON SAT AND ANEMIA
--- NOTE | 2020-01-30 18:00 | NUR ---
NURSE NOTES: pt voided X3, pt reminded to void in hat or urinal for accurate urine output documentation, pt aware of fluid restriction intake
--- NOTE | 2020-01-30 19:15 | NUR ---
HAND-OFF: Report given to Tanesha RN, pt stable.
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
[2020-01-30 20:00] VITALS: BP 98/64
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
[2020-01-31] VITALS: BP 97/65
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
[2020-01-31 04:00] VITALS: BP 114/61
[2020-01-31 06:56] LABS: ALANINE AMINOTRANSFERASE 41 U/L (12-78); ALBUMIN 2.7 G/DL (3.4-5.0); ALBUMIN/GLOBULIN RATIO 0.6 (1.0-2.7); ALKALINE PHOSPHATASE 125 U/L (46-116); ANION GAP 8 mmol/L (5-15); ASPARTATE AMINO TRANSFERASE 18 U/L (15-37); BILIRUBIN,TOTAL 0.3 MG/DL (0.2-1.0); BLOOD UREA NITROGEN 4 mg/dL (7-18); CALCIUM 8.9 MG/DL (8.5-10.1); CARBON DIOXIDE 26 MMOL/L (21-32); CHLORIDE 99 MMOL/L (98-107); CREATININE 0.7 MG/DL (0.55-1.30); POTASSIUM 3.8 MMOL/L (3.5-5.1); SODIUM 133 MMOL/L (136-145)
--- NOTE | 2020-01-31 07:30 | NUR ---
NURSE NOTES: Patient is in bed awake and able to verbalize needs. Stable. C/o severe pain on head. Dressing c/d/i. Patient is in bed in locked and lowest position with call light within reach. All safety measures provided. WIll continue to monitor.
--- NOTE | 2020-01-31 07:35 | NUR ---
HAND-OFF: Report given to Юлия RUBI. Patient in stable condition.
[2020-01-31 08:00] VITALS: BP 102/62
[2020-01-31] MEDS: HYDROcodone/Acetamin 5/325 tab ORAL PRN ×2 (08:31→18:06)
[2020-01-31] MEDS: Docusate 100mg cap ORAL SCH ×3 (08:31→18:02)
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
[2020-01-31 12:00] VITALS: BP 119/75
--- NOTE | 2020-01-31 15:42 | NUR ---
CASE MANAGEMENT:REVIEW 01/31/20 SI:FLUID RESTRICTION . ELECTROLYTE ABNORMALITY . DEHYDRATION. ANEMIA . CERVICAL SPIN FRACTURE SIAHD ~LIKELY URINE CX: STREP SPECIES S/P TRAUMATIC BRAIN INJURY 97.9 73 18 119/75 99% ON RA NA+ 133 URIC ACID 2.4 ALB 2.7 URINE OSMOLALITY 676 UR RANDOM NA 112 IS:KEPPRA PO BID PROTONIX PO BID COLACE PO TID NORCO Q6HR/PRN SILVADENE CREAM TO BID \: 3E MED SURG UNIT DCP: HARBOR POST ACUTE WHEN STABLE PLAN: FLUID RESTRICTION CONT TO ENCOURAGE AMBULATION Addendum: 01/31/20 at 1702 by ROSALES LEWIS LVN FAXED CLINICALS TO [facility] ([facility]) F:[phone] T:[phone] LUTHER WHITTEN
[2020-01-31 16:00] VITALS: BP 116/73
--- NOTE | 2020-01-31 19:31 | NUR ---
NURSE NOTES: Received report from ELICIA Redman. Pt a/ox4. No acute distress noted,breathing regular and unlabored. Denies pain. [place] on head open to air. Left hand 20G salinelocked Patient is in low and locked position. Call light within reach. Will continue to monitor.
--- NOTE | 2020-01-31 19:34 | NUR ---
HAND-OFF: Report given to Vick RUBI. Patient is stable.
[2020-01-31 20:00] VITALS: BP 107/71
[2020-01-31] MEDS: Iron Sucrose 100 MG in NS 55 ML IV SCH (20:55)
--- NOTE | 2020-01-31 22:00 | History and Physical Report ---
DATE OF ADMISSION: 01/27/2020 progressively some issues. Seen and evaluated by dump motorman who thinks the patient has a syndrome of inappropriate SIADH. Sodium is 133, potassium 3.8, chloride 99, BUN 4, creatinine 0.7, glucose 87, uric acid 3.4. WBC 5.9, hematocrit is 30.4. He has multiple yaya on his head . He has not had acute distress. He is wearing a cervical collar. Right eye has ptosis. Heart S1, S2. Lungs clear. Abdomen is soft. Extremities, no clubbing or cyanosis. IMPRESSION: 1. TBI. Seen by neurologist. Rehab evaluation. 2. Cervical fracture, on hard cervical collar. 3. Multiple yaya in the scalp, removal by surgeon. 4. DVT prophylaxis. 5. PT, OT, speech eval. 6. Case discussed with Neurology today. Joaquin Krueger M.D. DR: ARPIT JOB#: [id number] CC:
[2020-02-01] VITALS: BP 110/69
[2020-02-01 04:00] VITALS: BP 95/59
[2020-02-01] MEDS: HYDROcodone/Acetamin 5/325 tab ORAL PRN ×2 (04:14→16:52)
--- NOTE | 2020-02-01 07:12 | NUR ---
HAND-OFF: Report given to Brittany Irving. pt stable.
--- NOTE | 2020-02-01 07:15 | NUR ---
NURSE NOTES: Received report from ELICIA Hickman. Patient awake in bed, alert and verbally responsive, no SOB, bed in lowest position with alarms on and breaks engaged, padded side rails in place, IV line on left AC patent and intact, denies any pain or discomfort at this time, on room air, will continue to monitor and proceed with plan of care, call light within reach.
[2020-02-01 08:00] VITALS: BP 101/64
[2020-02-01] MEDS: Docusate 100mg cap ORAL SCH ×3 (08:17→16:51)
--- NOTE | 2020-02-01 09:10 | Surgery Progress Note ---
Surgery Progress Note Subjective Additional Comments Doing well. Site evaluated from prior yaya no bleeding no bruising no issues. Plan for removal remaining yaya today given patient's comfort level. Objective Last 24 Hour Vital Signs Date Time Temp Pulse Resp B/P (MAP) Pulse Ox O2 Delivery O2 Flow Rate FiO2 02/01/20 08:00 97.3 73 20 101/64 (76) 96 02/01/20 04:00 98.0 70 20 95/59 (71) 98 02/01/20 00:00 98.0 70 20 110/69 (83) 97 01/31/20 21:00 Room Air 01/31/20 20:00 98.1 83 20 107/71 (83) 97 01/31/20 16:00 98.0 69 19 116/73 (87) 99 01/31/20 12:00 97.9 73 18 119/75 (90) 99 I&O Intake and Output 01/31/20 02/01/20 19:00 07:00 Intake Total 160 ml Output Total 400 ml Balance -240 ml Intake Oral 100 ml IV Total 60 ml Output Urine Total 400 ml Dressing: dry Wound: clean Cardiovascular: RSR Respiratory: clear Abdomen: soft, non-tender, present bowel sounds Extremities: no edema, no tenderness, no cyanosis Plan Problems: (1) Electrolyte abnormality (2) Cervical spine fracture Assessment & Plan: craniotomy 3 weeks or so ago wound check wound healing well flap taken well no infection no significant hematoma soft fluid subcutaneous stable dressings clean and dry many yaya from midline forehead to left ear C flap incision given tolerance 1/2 yaya every other staple removed 01/30 will monitor flap and wound. will remove remaining yaya soon thank you Remaining yaya removed 02/01/2020 Patient tolerated well Wound clean dry intact (3) Dehydration (4) Pain (5) Electrolyte imbalance (6) Anemia (7) Hyponatremia Samuel Camara Feb 01, 2020 09:10
[2020-02-01 12:00] VITALS: BP 102/62
--- NOTE | 2020-02-01 12:53 | NUR ---
CASE MANAGEMENT: REVIEW 02/01/2020 SI: diabetes insipidus VS: T 97.5 HR 85 RR 18 B/P 102/62 SATS 97% ON RA LABS: NO LABS TODAY IS:VENOFER IV QHS PROTONIX PO Q12H KEPPRA PO Q12H COLACE PO TID MED/SURG PLAN OF CARE: FLUID RESTRICTION
--- NOTE | 2020-02-01 15:40 | NUR ---
NURSE NOTES: Report received from Maria Fernanda RN, rounds made. Yi/Bengali speaking male, AOX4 calm. Respirations even/unlabored on RA. 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 Bilateral arms cortes BALANCE BRIDGE INSPECTOR, skin intact. LAC heplock, intact, flushes well. Denies pain, SOB, NV. Urinal at bedside. Reinforced fluid restrictions as ordered. Call light in reach, bed in lowest position, will continue to monitor.
--- NOTE | 2020-02-01 15:46 | Neurology Progress Note ---
Interim History Interim History ROS Limited/Unobtainable: No Interim History Stitches removed, mild CORDOBA this AM Objective Physical Exam Last Vital Signs Date Time Temp Pulse Resp B/P (MAP) Pulse Ox O2 Delivery O2 Flow Rate FiO2 02/01/20 12:00 97.5 85 18 102/62 (75) 97 02/01/20 09:00 Room Air General: well developed Head: normocophalic Neurologic Exam Mental Status: oriented x4 Speech: normal speech Language: normal language Cranial Nerves III, IV, : PERRLA, EOMI Stance: normal Gait: stable Impression/Recommendations Problems: (1) Electrolyte abnormality (2) Cervical spine fracture (3) Dehydration (4) Pain Status: progressing Diagnostic Impression 1. 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 POSTCONCUSSIVE SYNDROME 3.. TRAUMATIC DISEQUILIBRIUM SYNDROME 4.. POSTCONCUSSIVE HEADACHE 5.. OCCIPITAL NEURALGIA, BILATERAL 6.. NECK SPASMS WITH BILATERAL PARESTHESIAS R/O RADICULOPATHY 7. ENCEPHALOPATHY 2/2 HYPONATREMIA. Based on the mechanism of injury and denial of previous injury with high medical probability, the accident was the cause of the injury and related symptoms. RECOMMENDATIONS: 1. IVFs and sodium management per nephrology. 2. maintain hydration 3. Monitor orthostatics 4.. Greater and lesser occipital nerve block and Trigger point injections if headache recurs 5. Advance MRI technique including 3 Ericka MRI of the brain without contrast with SWI and DTI and volumetric analysis 6. VAT combo with ENG and vestibular exercises outpatient 7. PT OT RESIDENCE HALL DIRECTOR 8. REMOVAL OF Ziyad Mckeon MD Feb 01, 2020 15:46
--- NOTE | 2020-02-01 15:48 | NUR ---
HAND-OFF: Report given to ELICIA Mak for re-assignment.
[2020-02-01 16:00] VITALS: BP 99/64
[2020-02-01] MEDS: Milk of Magnesia 30ml Ud ORAL PRN (16:50)
--- NOTE | 2020-02-01 19:00 | History and Physical Report ---
DATE OF ADMISSION: 01/27/2020 Current room location is 39, bed 2, [facility]. HISTORY OF PRESENT ILLNESS: This unfortunate male was admitted with traumatic brain injury. He is awaiting to be transferred to near rehabilitation. He denies fever, chills or nausea. He has had headaches. Today, his yaya were removed. PHYSICAL EXAMINATION: NECK: He is wearing a cervical collar. Right eye ptosis. HEART: S1 and S2. LUNGS: Clear. IMPRESSION: 1. Traumatic brain injury. 2. Awaiting to be transferred to a rehabilitation unit. Case was discussed with the nursing staff. 3. BMP will be ordered for the patient in the morning. 4. We will monitor the patient closely. 5. Hyponatremia. 6. 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 7. Nephrology has been following the patient. 8. Case was discussed with Neurology. 9. Agreeable to transfer the patient to acute rehabilitation unit for new rehabilitation. 10. SIADH on fluid restriction Joaquin Krueger M.D. DR: Nabila JOB#: [id number] CC: PENELOPE
--- NOTE | 2020-02-01 19:25 | NUR ---
NURSE NOTES: Received report from ELICIA Mak. Pt is awake, lying semi-cuadra's; comfortably resting. No signs of acute distress noted. Pt denies any pain at this time. AOx4; able to make needs known. Checked IV; patent and flushed. No erythema, bleeding, or infiltration noted. 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 Head injury noted; INOCENTE. Pt oriented to room. Bed at lowest position. Brakes on. Siderails up x2. Call light within reach. Will continue to monitor.
--- NOTE | 2020-02-01 19:32 | NUR ---
HAND-OFF: Report given to Mehnaz RUBI, rounds made, patient stable.
[2020-02-01 20:00] VITALS: BP 103/67
[2020-02-01] MEDS: Iron Sucrose 100 MG in NS 55 ML IV SCH (20:50)
[2020-02-02 06:40] LABS: BASOPHILS % (AUTO) 1.3 % (0.0-2.0); HEMATOCRIT 33.6 % (42.0-52.0); HEMOGLOBIN 10.5 G/DL (14.2-18.0); LYMPHOCYTES % (AUTO) 17.8 % (20.0-45.0); MEAN CORPUSCULAR VOLUME 89 FL (80-99); MONOCYTES % (AUTO) 9.6 % (1.0-10.0); NEUTROPHILS % (AUTO) 66.4 % (45.0-75.0); PLATELET COUNT 471 K/UL (150-450); RED BLOOD COUNT 3.77 M/UL (4.70-6.10); RED CELL DISTRIBUTION WIDTH 13.4 % (11.6-14.8); WHITE BLOOD COUNT 6.2 K/UL (4.8-10.8)
[2020-02-02] MEDS: HYDROcodone/Acetamin 5/325 tab ORAL PRN ×2 (07:02→13:59)
[2020-02-02 07:07] LABS: ANION GAP 11 mmol/L (5-15); BLOOD UREA NITROGEN 6 mg/dL (7-18); CALCIUM 8.8 MG/DL (8.5-10.1); CARBON DIOXIDE 24 MMOL/L (21-32); CHLORIDE 100 MMOL/L (98-107); CREATININE 0.7 MG/DL (0.55-1.30); POTASSIUM 4.4 MMOL/L (3.5-5.1); SODIUM 135 MMOL/L (136-145)
[2020-02-02 07:15] LABS: ALANINE AMINOTRANSFERASE 34 U/L (12-78); ALBUMIN 2.8 G/DL (3.4-5.0); ALBUMIN/GLOBULIN RATIO 0.7 (1.0-2.7); ALKALINE PHOSPHATASE 118 U/L (46-116); ANION GAP 10 mmol/L (5-15); ASPARTATE AMINO TRANSFERASE 19 U/L (15-37); BILIRUBIN,TOTAL 0.4 MG/DL (0.2-1.0); BLOOD UREA NITROGEN 5 mg/dL (7-18); CALCIUM 8.9 MG/DL (8.5-10.1); CARBON DIOXIDE 24 MMOL/L (21-32); CHLORIDE 100 MMOL/L (98-107); CREATININE 0.5 MG/DL (0.55-1.30); POTASSIUM 3.9 MMOL/L (3.5-5.1); SODIUM 134 MMOL/L (136-145)
--- NOTE | 2020-02-02 07:30 | Neurology Progress Note ---
Interim History Interim History ROS Limited/Unobtainable: No Interim History mild CORDOBA, still very dizzy when ambulating Objective Physical Exam Last Vital Signs Date Time Temp Pulse Resp B/P (MAP) Pulse Ox O2 Delivery O2 Flow Rate FiO2 02/01/20 21:00 Room Air 02/01/20 20:00 97.6 76 18 103/67 (79) 96 Laboratory Tests Test 02/02/20 05:00 White Blood Count 6.2 K/UL (4.8-10.8) Red Blood Count 3.77 M/UL (4.70-6.10) L Hemoglobin 10.5 G/DL (14.2-18.0) L Hematocrit 33.6 % (42.0-52.0) L Mean Corpuscular Volume 89 FL (80-99) Mean Corpuscular Hemoglobin 27.9 PG (27.0-31.0) Mean Corpuscular Hemoglobin Concent 31.2 G/DL (32.0-36.0) L Red Cell Distribution Width 13.4 % (11.6-14.8) Platelet Count 471 K/UL (150-450) H Mean Platelet Volume 5.0 FL (6.5-10.1) L Neutrophils (%) (Auto) 66.4 % (45.0-75.0) Lymphocytes (%) (Auto) 17.8 % (20.0-45.0) L Monocytes (%) (Auto) 9.6 % (1.0-10.0) Eosinophils (%) (Auto) 5.0 % (0.0-3.0) H Basophils (%) (Auto) 1.3 % (0.0-2.0) Sodium Level 135 MMOL/L (136-145) L Potassium Level 4.4 MMOL/L (3.5-5.1) Chloride Level 100 MMOL/L (98-107) Carbon Dioxide Level 24 MMOL/L (21-32) Anion Gap 11 mmol/L (5-15) Blood Urea Nitrogen 6 mg/dL (7-18) L Creatinine 0.7 MG/DL (0.55-1.30) Estimat Glomerular Filtration Rate > 60 mL/min (>60) Glucose Level 80 MG/DL (74-106) Uric Acid 3.0 MG/DL (2.6-7.2) Calcium Level 8.8 MG/DL (8.5-10.1) Total Bilirubin 0.4 MG/DL (0.2-1.0) Aspartate Amino Transf (AST/SGOT) 19 U/L (15-37) Alanine Aminotransferase (ALT/SGPT) 34 U/L (12-78) Alkaline Phosphatase 118 U/L (46-116) H Total Protein 7.1 G/DL (6.4-8.2) Albumin 2.8 G/DL (3.4-5.0) L Globulin 4.3 g/dL Albumin/Globulin Ratio 0.7 (1.0-2.7) L General: well developed Head: normocophalic Neurologic Exam Mental Status: oriented x4 Speech: normal speech Language: normal language Cranial Nerves III, IV, : PERRLA, EOMI Stance: normal Gait: stable Impression/Recommendations Problems: (1) Electrolyte abnormality (2) Cervical spine fracture (3) Dehydration (4) Pain Status: progressing Diagnostic Impression 1. 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 POSTCONCUSSIVE SYNDROME 3.. TRAUMATIC DISEQUILIBRIUM SYNDROME 4.. POSTCONCUSSIVE HEADACHE 5.. OCCIPITAL NEURALGIA, BILATERAL 6.. NECK SPASMS WITH BILATERAL PARESTHESIAS R/O RADICULOPATHY 7. ENCEPHALOPATHY 2/2 HYPONATREMIA. Based on the mechanism of injury and denial of previous injury with high medical probability, the accident was the cause of the injury and related symptoms. RECOMMENDATIONS: 1. IVFs and sodium management per nephrology. 2. maintain hydration 3. Monitor orthostatics 4.. Greater and lesser occipital nerve block and Trigger point injections if headache recurs 5. Advance MRI technique including 3 Ericka MRI of the brain without contrast with SWI and DTI and volumetric analysis 6. VAT combo with ENG and vestibular exercises outpatient 7. PT OT COUNTRY SINGER 8. REMOVAL OF ALONDRA Ziyad Baltazar MD Feb 02, 2020 07:30
--- NOTE | 2020-02-02 07:36 | NUR ---
NURSE NOTES: Report received from Mehnaz RN, rounds made. [place] Islander/Irish speaking male, AOX4 calm. Respirations even/unlabored on RA. 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 Bilateral arms cortes INOCENTE, skin intact. LAC heplock, intact, flushes well. Denies pain, SOB, NV. Urinal at bedside. Reinforced fluid restrictions as ordered. Call light in reach, bed in lowest position, will continue to monitor.
--- NOTE | 2020-02-02 07:41 | NUR ---
HAND-OFF: Report given to ELICIA Mak. Pt is awake and in stable condition. Plan of care endorsed.
[2020-02-02 08:00] VITALS: BP 108/60
[2020-02-02] MEDS: Milk of Magnesia 30ml Ud ORAL PRN (09:25)
[2020-02-02] MEDS: Docusate 100mg cap ORAL SCH ×3 (09:25→18:36)
--- NOTE | 2020-02-02 10:30 | NUR ---
NURSE NOTES: Partial sponge bath, skin and nail care provided. Vitamin A&D ointment and moisturizer applied to BLE/feet (skin very dry, remains intact). 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 Cervical collar removed, skin care provided, skin pinkish, ear lobes some small areas peeling. Facial shaver used with hygiene care.
[2020-02-02 12:00] VITALS: BP 102/64
--- NOTE | 2020-02-02 12:57 | Surgery Progress Note ---
Surgery Progress Note Subjective Additional Comments comfortable no bleeding wounds okay since yaya out no n/v/f/c collar evaluated and not wounds will need to eval with neurosurgeon for consideration of duration collar Objective Last 24 Hour Vital Signs Date Time Temp Pulse Resp B/P (MAP) Pulse Ox O2 Delivery O2 Flow Rate FiO2 02/02/20 08:00 98.1 79 18 108/60 (76) 95 02/01/20 21:00 Room Air 02/01/20 20:00 97.6 76 18 103/67 (79) 96 02/01/20 16:00 97.1 77 20 99/64 (76) 94 I&O Intake and Output 02/01/20 02/02/20 19:00 07:00 Intake Total 300 ml 150 ml Output Total 100 ml 400 ml Balance 200 ml -250 ml Intake Oral 300 ml 150 ml Output Urine Total 100 ml 400 ml Dressing: dry Wound: clean Cardiovascular: RSR Respiratory: clear Abdomen: soft, non-tender, present bowel sounds Extremities: no edema, no tenderness, no cyanosis Laboratory Tests Test 02/02/20 05:00 White Blood Count 6.2 K/UL (4.8-10.8) Red Blood Count 3.77 M/UL (4.70-6.10) L Hemoglobin 10.5 G/DL (14.2-18.0) L Hematocrit 33.6 % (42.0-52.0) L Mean Corpuscular Volume 89 FL (80-99) Mean Corpuscular Hemoglobin 27.9 PG (27.0-31.0) Mean Corpuscular Hemoglobin Concent 31.2 G/DL (32.0-36.0) L Red Cell Distribution Width 13.4 % (11.6-14.8) Platelet Count 471 K/UL (150-450) H Mean Platelet Volume 5.0 FL (6.5-10.1) L Neutrophils (%) (Auto) 66.4 % (45.0-75.0) Lymphocytes (%) (Auto) 17.8 % (20.0-45.0) L Monocytes (%) (Auto) 9.6 % (1.0-10.0) Eosinophils (%) (Auto) 5.0 % (0.0-3.0) H Basophils (%) (Auto) 1.3 % (0.0-2.0) Sodium Level 135 MMOL/L (136-145) L Potassium Level 4.4 MMOL/L (3.5-5.1) Chloride Level 100 MMOL/L (98-107) Carbon Dioxide Level 24 MMOL/L (21-32) Anion Gap 11 mmol/L (5-15) Blood Urea Nitrogen 6 mg/dL (7-18) L Creatinine 0.7 MG/DL (0.55-1.30) Estimat Glomerular Filtration Rate > 60 mL/min (>60) Glucose Level 80 MG/DL (74-106) Uric Acid 3.0 MG/DL (2.6-7.2) Calcium Level 8.8 MG/DL (8.5-10.1) Total Bilirubin 0.4 MG/DL (0.2-1.0) Aspartate Amino Transf (AST/SGOT) 19 U/L (15-37) Alanine Aminotransferase (ALT/SGPT) 34 U/L (12-78) Alkaline Phosphatase 118 U/L (46-116) H Total Protein 7.1 G/DL (6.4-8.2) Albumin 2.8 G/DL (3.4-5.0) L Globulin 4.3 g/dL Albumin/Globulin Ratio 0.7 (1.0-2.7) L Plan Problems: (1) Electrolyte abnormality (2) Cervical spine fracture Assessment & Plan: craniotomy 3 weeks or so ago wound check wound healing well flap taken well no infection no significant hematoma soft fluid subcutaneous stable dressings clean and dry many yaya from midline forehead to left ear C flap incision given tolerance 1/2 yaya every other staple removed 01/30 will monitor flap and wound. will remove remaining yaya soon thank you Remaining yaya removed 02/01/2020 Patient tolerated well Wound clean dry intact (3) Dehydration (4) Pain (5) Electrolyte imbalance (6) Anemia (7) Hyponatremia Samuel Camara Feb 02, 2020 12:57
--- NOTE | 2020-02-02 13:38 | Nephrology Progress Note ---
Assessment/Plan Problem List: (1) Electrolyte imbalance (2) Dehydration (3) Anemia (4) Hyponatremia Assessment: Likely SIADH Assessment ?? Diabetes insipidus, doubt Recent fall from height and brain injury requiring brain surgery at [facility] Electrolyte abnormalities Anemia Plan Serum sodium stable. Continue p.o. fluid restriction. Monitor serum sodium. IV iron for low iron saturation and anemia given Patient has not been any polyuric since in the hospital. The diagnosis of diabetes insipidus is in doubt. Lab work mostly direct the hyponatremia to be SIADH, hence will put on fluid restriction 800 cc per 24 hours Desmopressin is stopped. Urine studies ordered. Reviewed Norvasc is discontinued due to low blood pressure and as needed hydralazine for high blood pressure ordered. Continue per PMD. Subjective ROS Limited/Unobtainable: No Objective Objective Last 24 Hour Vital Signs Date Time Temp Pulse Resp B/P (MAP) Pulse Ox O2 Delivery O2 Flow Rate FiO2 02/02/20 12:00 98.0 86 18 102/64 (77) 94 02/02/20 08:00 98.1 79 18 108/60 (76) 95 02/01/20 21:00 Room Air 02/01/20 20:00 97.6 76 18 103/67 (79) 96 02/01/20 16:00 97.1 77 20 99/64 (76) 94 Intake and Output 02/01/20 02/02/20 19:00 07:00 Intake Total 300 ml 150 ml Output Total 100 ml 400 ml Balance 200 ml -250 ml Intake Oral 300 ml 150 ml Output Urine Total 100 ml 400 ml Laboratory Tests 02/02/20 05:00: White Blood Count 6.2, Red Blood Count 3.77L, Hemoglobin 10.5L, Hematocrit 33.6L , Mean Corpuscular Volume 89, Mean Corpuscular Hemoglobin 27.9, Mean Corpuscular Hemoglobin Concent 31.2L, Red Cell Distribution Width 13.4, Platelet Count 471H, Mean Platelet Volume 5.0L, Neutrophils (%) (Auto) 66.4, Lymphocytes (%) (Auto) 17.8L, Monocytes (%) (Auto) 9.6, Eosinophils (%) (Auto) 5.0H, Basophils (%) (Auto) 1.3, Sodium Level 135L, Potassium Level 4.4, Chloride Level 100, Carbon Dioxide Level 24, Anion Gap 11, Blood Urea Nitrogen 6L, Creatinine 0.7, Estimat Glomerular Filtration Rate > 60, Glucose Level 80, Uric Acid 3.0, Calcium Level 8.8, Total Bilirubin 0.4, Aspartate Amino Transf ( AST/SGOT) 19, Alanine Aminotransferase (ALT/SGPT) 34, Alkaline Phosphatase 118H , Total Protein 7.1, Albumin 2.8L, Globulin 4.3, Albumin/Globulin Ratio 0.7L Height (Feet): 5 Height (Inches): 3.00 Weight (Pounds): 168 Objective No change Sung Ruiz MD Feb 02, 2020 13:38
--- NOTE | 2020-02-02 13:44 | NUR ---
CASE MANAGEMENT:REVIEW 02/02/20 SI:FLUID RESTRICTION . ELECTROLYTE ABNORMALITY . DEHYDRATION. ANEMIA . CERVICAL SPIN FRACTURE SIAHD ~LIKELY URINE CX: STREP SPECIES S/P TRAUMATIC BRAIN INJURY 98.1 86 18 102/64 94% ON RA NA 134 BUN 5 ALB 2.8 PLT 471 IS:KEPPRA PO BID PROTONIX PO BID COLACE PO TID NORCO Q6HR/PRN SILVADENE CREAM TO BID IV VENOFER X5BAGS QHS \: 3E MED SURG UNIT DCP: CONDUCTOR PULLMAN REHAB PLAN: FLUID RESTRICTION CONT TO ENCOURAGE AMBULATION ~F/U WITH CONDUCTOR PULLMAN (NANO) F:[phone] T:[phone] LUTHER WHITTEN Addendum: 02/02/20 at 1350 by ROSALES LEWIS LVN CM F/U WITH LUTHER; BUT NUMBER OUT OF SERVICE CM TO F/U WITH ADJUSTOR FOR AUTH FOR REHAB
[2020-02-02 16:00] VITALS: BP 103/73
--- NOTE | 2020-02-02 19:28 | NUR ---
HAND-OFF: Report given to Mehnaz RUBI, rounds made, patient stable. Endorsed to keep cervical collar on, follow up with neurologist for further instructions.
--- NOTE | 2020-02-02 19:35 | NUR ---
NURSE NOTES: Received report from ELICIA Mak. Pt is awake, lying semi-cuadra's; comfortably resting. No signs of acute distress noted. Pt denies any pain at this time. AOx4; able to make needs known. Checked IV; patent and flushed. No erythema, bleeding, or infiltration noted. Urinal at bedside. Pt oriented to room. Bed at lowest position. Brakes on. Siderails up x2. Call light within reach. Will continue to monitor.
[2020-02-02 20:00] VITALS: BP 107/73
[2020-02-02] MEDS: Iron Sucrose 100 MG in NS 55 ML IV SCH (20:39)
[2020-02-03 04:00] VITALS: BP 98/64
--- NOTE | 2020-02-03 07:15 | NUR ---
HAND-OFF: Report given to ELICIA Corrales. Pt is awake and in stable condition. Plan of care endorsed.
--- NOTE | 2020-02-03 07:21 | NUR ---
NURSE NOTES: Received report from Mehnaz RN, rounds made pt awake and breakfast by then bed side , pt c/o headache 01/09, will provide medication as ordered , pt head yaya were removed and open to air, pt had no urine output for shift superintendent caustic cresylate, encouraged pt to void in the urinal for accurate monitoring of output due to low urine output, pt has a Lt AC 22G locked, bed in low locked position, side rails upX2 and padded, call light with in reach will continue to monitor
[2020-02-03] MEDS: HYDROcodone/Acetamin 5/325 tab ORAL PRN ×2 (07:45→18:11)
[2020-02-03 08:00] VITALS: BP 101/59
[2020-02-03] MEDS: Milk of Magnesia 30ml Ud ORAL PRN (08:16)
[2020-02-03] MEDS: Docusate 100mg cap ORAL SCH ×3 (08:16→18:11)
--- NOTE | 2020-02-03 10:01 | NUR ---
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
--- NOTE | 2020-02-03 11:00 | NUR ---
NURSE NOTES: Pt vitals were checked by physical therapy before ambulation and pt heart rate increased up 120, before ambulation, physical therapy session was stopped was stopped , MD Camara notified ,
[2020-02-03 12:00] VITALS: BP 98/68
--- NOTE | 2020-02-03 12:16 | Surgery Progress Note ---
Surgery Progress Note Subjective Symptoms: improved, tolerating diet, voiding well, passing flatus, pain decreased Objective Last 24 Hour Vital Signs Date Time Temp Pulse Resp B/P (MAP) Pulse Ox O2 Delivery O2 Flow Rate FiO2 02/03/20 09:00 Room Air 02/03/20 08:00 97.6 81 18 101/59 (73) 91 02/03/20 04:00 98.4 71 18 98/64 (75) 95 02/02/20 21:00 Room Air 02/02/20 20:00 98.2 70 18 107/73 (84) 95 02/02/20 16:00 98.1 68 18 103/73 (83) 96 I&O Intake and Output 02/02/20 02/03/20 19:00 07:00 Intake Total 320 ml 400 ml Output Total 475 ml Balance -155 ml 400 ml Intake Oral 320 ml 400 ml Output Urine Total 475 ml # Voids 2 Dressing: dry Wound: clean, dry, intact Cardiovascular: RSR Respiratory: clear Abdomen: soft, non-tender, present bowel sounds Extremities: no edema, no tenderness, no cyanosis Plan Problems: (1) Electrolyte abnormality (2) Cervical spine fracture Assessment & Plan: craniotomy 3 weeks or so ago wound check wound healing well flap taken well no infection no significant hematoma soft fluid subcutaneous stable dressings clean and dry many yaya from midline forehead to left ear C flap incision given tolerance 1/2 yaya every other staple removed 01/30 will monitor flap and wound. will remove remaining yaya soon thank you Remaining yaya removed 02/01/2020 Patient tolerated well Wound clean dry intact neurosurgery f/u for collar (3) Dehydration (4) Pain (5) Electrolyte imbalance (6) Anemia (7) Hyponatremia Samuel Camara Feb 03, 2020 12:16
--- NOTE | 2020-02-03 14:55 | NUR ---
*-* INSURANCE *-* COMPLETE RECORDS HAVE BEEN EMAILED TO: *-* RECEIVED AN EMAIL FROM SANJEEV RUSSO REQUESTING COMPLETE RECORDS BE FAXED TO:[email or web address]
--- NOTE | 2020-02-03 14:56 | Neurology Progress Note ---
Interim History Interim History ROS Limited/Unobtainable: No Interim History Feeling better, mild CORDOBA only Plan to transfer to rehab Objective Physical Exam Last Vital Signs Date Time Temp Pulse Resp B/P (MAP) Pulse Ox O2 Delivery O2 Flow Rate FiO2 02/03/20 12:00 97.6 72 18 98/68 (78) 97 02/03/20 09:00 Room Air General: well developed Head: normocophalic Neurologic Exam Mental Status: oriented x4 Speech: normal speech Language: normal language Cranial Nerves III, IV, : PERRLA, EOMI Stance: normal Gait: stable Impression/Recommendations Problems: (1) Electrolyte abnormality (2) Cervical spine fracture (3) Dehydration (4) Pain Status: progressing Diagnostic Impression 1. 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 POSTCONCUSSIVE SYNDROME 3.. TRAUMATIC DISEQUILIBRIUM SYNDROME 4.. POSTCONCUSSIVE HEADACHE 5.. OCCIPITAL NEURALGIA, BILATERAL 6.. NECK SPASMS WITH BILATERAL PARESTHESIAS R/O RADICULOPATHY 7. ENCEPHALOPATHY 2/2 HYPONATREMIA. Based on the mechanism of injury and denial of previous injury with high medical probability, the accident was the cause of the injury and related symptoms. RECOMMENDATIONS: 1. IVFs and sodium management per nephrology. 2. maintain hydration 3. Monitor orthostatics 4.. Greater and lesser occipital nerve block and Trigger point injections if headache recurs 5. Advance MRI technique including 3 Ericka MRI of the brain without contrast with SWI and DTI and volumetric analysis 6. VAT combo with ENG and vestibular exercises outpatient 7. PT OT TILE PROFESSIONAL 8. REMOVAL OF ALONDRA 9. Ziyad Whitmore MD Feb 03, 2020 14:55
[2020-02-03 16:00] VITALS: BP 100/70
--- NOTE | 2020-02-03 16:56 | NUR ---
CASE MANAGEMENT:REVIEW 02/02/20 SI:FLUID RESTRICTION . ELECTROLYTE ABNORMALITY . DEHYDRATION. ANEMIA . CERVICAL SPIN FRACTURE SIAHD ~LIKELY URINE CX: STREP SPECIES S/P TRAUMATIC BRAIN INJURY 98.4 74 17 100/70 98% ON RA IS:KEPPRA PO BID PROTONIX PO BID COLACE PO TID NORCO Q6HR/PRN SILVADENE CREAM TO BID IV VENOFER X5BAGS QHS \: 3E MED SURG UNIT DCP: GUEST SERVICES ASSOCIATE REHAB PLAN: FLUID RESTRICTION CONT TO ENCOURAGE AMBULATION CLINICAL FAXED GUEST SERVICES ASSOCIATE CassandraNANO) F:[phone] T:[phone] LUTHER WHITTEN ANTICIPATED DC SOON Addendum: 02/02/20 at 1350 by ROSALES LEWIS LVN CM F/U WITH LUTHER; BUT NUMBER OUT OF SERVICE CM TO F/U WITH ADJUSTOR FOR AUTH FOR REHAB
--- NOTE | 2020-02-03 19:28 | NUR ---
HAND-OFF: Report given to Polly RN, pt stable
--- NOTE | 2020-02-03 19:30 | NUR ---
NURSE NOTES: Receive a report from ELICIA Newell. Pt is awake and alert. No acute distress noted. Denies pain. Surgery site on head is open to the air without discharge. On cervical collar to support the neck. No seizure movement noted. Call light within reach. Will continue to monitor.
[2020-02-03 20:00] VITALS: BP 106/65
[2020-02-03] MEDS: Iron Sucrose 100 MG in NS 55 ML IV SCH (21:42)
[2020-02-04 04:50] VITALS: BP 101/68
[2020-02-04] MEDS: Milk of Magnesia 30ml Ud ORAL PRN (05:03)
[2020-02-04] MEDS: HYDROcodone/Acetamin 5/325 tab ORAL PRN (05:04)
--- NOTE | 2020-02-04 07:06 | Neurology Progress Note ---
Interim History Interim History ROS Limited/Unobtainable: No Interim History anxious to go to rehab Dizzy when ambulating Objective Physical Exam Last Vital Signs Date Time Temp Pulse Resp B/P (MAP) Pulse Ox O2 Delivery O2 Flow Rate FiO2 02/04/20 04:50 98.0 74 18 101/68 (79) 95 02/03/20 21:00 Room Air General: well developed Head: normocophalic Neurologic Exam Mental Status: oriented x4 Speech: normal speech Language: normal language Cranial Nerves III, IV, : PERRLA, EOMI Stance: normal Gait: stable Impression/Recommendations Problems: (1) Electrolyte abnormality (2) Cervical spine fracture (3) Dehydration (4) Pain Status: progressing Diagnostic Impression 1. 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 POSTCONCUSSIVE SYNDROME 3.. TRAUMATIC DISEQUILIBRIUM SYNDROME 4.. POSTCONCUSSIVE HEADACHE 5.. OCCIPITAL NEURALGIA, BILATERAL 6.. NECK SPASMS WITH BILATERAL PARESTHESIAS R/O RADICULOPATHY 7. ENCEPHALOPATHY 2/2 HYPONATREMIA. Based on the mechanism of injury and denial of previous injury with high medical probability, the accident was the cause of the injury and related symptoms. RECOMMENDATIONS: 1. IVFs and sodium management per nephrology. 2. maintain hydration 3. Monitor orthostatics 4.. Greater and lesser occipital nerve block and Trigger point injections if headache recurs 5. Advance MRI technique including 3 Ericka MRI of the brain without contrast with SWI and DTI and volumetric analysis 6. VAT combo with ENG and vestibular exercises outpatient 7. PT OT TRAVEL COUNSELOR AUTOMOBILE CLUB 8. REMOVAL OF ALONDRA 9. Ziyad Whitmore MD Feb 04, 2020 07:06
--- NOTE | 2020-02-04 07:35 | NUR ---
HAND-OFF: Report given to ELICIA Macias. Round is done.
--- NOTE | 2020-02-04 07:45 | NUR ---
NURSE NOTES: Receive a report from ELICIA Matias. Pt awake in bed on RA. No acute distress note. Denies any pain at this time. Surgical site on head open to the air. No bleeding, no swelling no redness noted. Cervical collar to support the neck. Padded side rails up x2. Call light within reach. Will continue to monitor.
[2020-02-04 08:00] VITALS: BP 100/62
[2020-02-04] MEDS: Docusate 100mg cap ORAL SCH ×3 (08:53→17:58)
--- NOTE | 2020-02-04 10:42 | NUR ---
NURSE NOTES: According to Physical therapist, pt's heart rate went up to 131 when pt was standing up. HR was 96 in lying and 110 in sitting position. PT stopped. Dr. Camara aware. No new order. Will try physical therapy tomorrow.
--- NOTE | 2020-02-04 11:53 | NUR ---
PT WEEKLY PROGRESS NOTE Patient being seen by PT for ther exercises, balance activities, transfer training and gait training. Patient requires SBA for bed mobility and transfers. Patient able to ambulate 200 ft with SBA and FWW. Activity tolerance limited at times by c/o headache and dizziness and increased HR. Patient will benefit from continued skilled inpatient PT intervention to increase strength, endurance and balance for improved level of functional mobility and independence.
[2020-02-04 12:00] VITALS: BP 103/71
--- NOTE | 2020-02-04 13:46 | NUR ---
APIGEE DEVELOPER NOTES SPOKE WITH DR. PRIETO IN REGARDS TO DCP, REQUESTED ME TO CALL DALE FROM Abigail Stewart. SPOKE WITH DALE FROM [facility] Stewart DCP IS TO GO TO AN NEURO REHAB IN [place]. CAT DOG OR OTHER PET GROOMER WAS UNABLE TO ASSESS PT TODAY DUE TO ILLNESS, THE FACILITY IS CURRENTLY LOOKING FOR A REPLACEMENT TO ASSESS THE PATIENT. DR. PRIETO UPDATED. PT ALSO MADE AWARE. DALE Abigail Stewart [phone]
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
--- NOTE | 2020-02-04 14:08 | Surgery Progress Note ---
Surgery Progress Note Subjective Additional Comments ortho static tachy when ambulatory held pt today because tachy upon standing feels well wound c/d/i Objective Last 24 Hour Vital Signs Date Time Temp Pulse Resp B/P (MAP) Pulse Ox O2 Delivery O2 Flow Rate FiO2 02/04/20 12:00 97.7 69 18 103/71 (82) 96 02/04/20 09:00 Room Air 02/04/20 08:00 97.2 82 18 100/62 (75) 96 02/04/20 04:50 98.0 74 18 101/68 (79) 95 02/04/20 00:00 18 02/03/20 21:00 Room Air 02/03/20 20:00 97.3 69 18 106/65 (79) 97 02/03/20 16:00 98.4 74 17 100/70 (80) 98 I&O Intake and Output 02/03/20 02/04/20 19:00 07:00 Intake Total 500 ml 80 ml Output Total 280 ml Balance 220 ml 80 ml Intake Oral 500 ml 80 ml Output Urine Total 280 ml Dressing: dry Wound: clean Cardiovascular: RSR Respiratory: clear Abdomen: soft, non-tender, present bowel sounds Extremities: no edema, no tenderness, no cyanosis Plan Problems: (1) Electrolyte abnormality (2) Cervical spine fracture Assessment & Plan: craniotomy 3 weeks or so ago wound check wound healing well flap taken well no infection no significant hematoma soft fluid subcutaneous stable dressings clean and dry many yaya from midline forehead to left ear C flap incision given tolerance 1/2 yaya every other staple removed 01/30 will monitor flap and wound. will remove remaining yaya soon thank you Remaining yyaa removed 02/01/2020 Patient tolerated well Wound clean dry intact neurosurgery f/u for collar (3) Dehydration (4) Pain (5) Electrolyte imbalance (6) Anemia (7) Hyponatremia Samuel Camara Feb 04, 2020 14:08
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
[2020-02-04 16:00] VITALS: BP 106/74
--- NOTE | 2020-02-04 18:06 | NUR ---
CASE MANAGEMENT: REVIEW SI: TRAUMATIC RONY INJURY DEHYDRATION . TACHY WHEN AMBULATORY T 97.2 HR 82 RR 18 BP 100/62 SAT 96% ROOM AIR H/H 10.5/33.6 NA 135 IS: VENOFER IV QHS PROTONIX PO Q12HR SILVADENE TOPICAL BID KEPPRA PO Q12HR MED/SURG STATUS DCP: PATIENT IS FROM HOME. PLAN TO DC TO NEURO REHAB
--- NOTE | 2020-02-04 18:11 | NUR ---
*-* INSURANCE *-* UPDATED CLINICALS EMAILED TO: [email or web address]
--- NOTE | 2020-02-04 19:16 | NUR ---
HAND-OFF: Report given to ELICIA Matias.
--- NOTE | 2020-02-04 19:18 | NUR ---
NURSE NOTES: Receive a report from ELICIA Jones. Round is done. Pt is awake and alert. No acute distress noted. Denies any pain. No dizziness or CORDOBA noted at this time. Fluid restriction is 800ml/day. Call light within reach. Will continue to monitor.
[2020-02-04 20:00] VITALS: BP 123/77
[2020-02-04] MEDS: Iron Sucrose 100 MG in NS 55 ML IV SCH (20:25)
[2020-02-05 04:30] VITALS: BP 107/73
[2020-02-05] MEDS: Milk of Magnesia 30ml Ud ORAL PRN (04:56)
--- NOTE | 2020-02-05 05:00 | NUR ---
NURSE NOTES: Pt went to bathroom for BM but said that it was not smooth. Given prn MOM for constipation. Will continue to monitor.
[2020-02-05 07:06] LABS: ALANINE AMINOTRANSFERASE 31 U/L (12-78); ALBUMIN/GLOBULIN RATIO 0.6 (1.0-2.7); ALKALINE PHOSPHATASE 115 U/L (46-116); ANION GAP 11 mmol/L (5-15); ASPARTATE AMINO TRANSFERASE 18 U/L (15-37); BILIRUBIN,TOTAL 0.4 MG/DL (0.2-1.0); BLOOD UREA NITROGEN 5 mg/dL (7-18); CALCIUM 8.9 MG/DL (8.5-10.1); CARBON DIOXIDE 23 MMOL/L (21-32); CHLORIDE 101 MMOL/L (98-107); CREATININE 0.7 MG/DL (0.55-1.30); POTASSIUM 3.6 MMOL/L (3.5-5.1); SODIUM 135 MMOL/L (136-145)
--- NOTE | 2020-02-05 07:06 | NUR ---
HAND-OFF: Report given to ELICIA Macias. Pain decreased after taking Tylenol 650mg po. Will continue to monitor.
[2020-02-05 08:00] VITALS: BP 96/62
[2020-02-05] MEDS: Docusate 100mg cap ORAL SCH ×3 (08:28→18:59)
--- NOTE | 2020-02-05 09:30 | Surgery Progress Note ---
Surgery Progress Note Subjective Additional Comments resting comfortable no n/v/f/c no wound issues working with pt Objective Last 24 Hour Vital Signs Date Time Temp Pulse Resp B/P (MAP) Pulse Ox O2 Delivery O2 Flow Rate FiO2 02/05/20 04:30 97.4 80 18 107/73 (84) 94 02/05/20 00:00 18 02/04/20 21:00 Room Air 02/04/20 20:00 98.1 86 18 123/77 (92) 98 02/04/20 18:52 97.8 02/04/20 16:00 97.8 86 18 106/74 (85) 94 02/04/20 12:00 97.7 69 18 103/71 (82) 96 I&O Intake and Output 02/04/20 02/05/20 19:00 07:00 Intake Total 400 ml 100 ml Output Total 400 ml Balance 400 ml -300 ml Intake Oral 400 ml 100 ml Output Urine Total 400 ml # Voids 3 Dressing: dry Wound: clean Cardiovascular: RSR Respiratory: clear Abdomen: soft, non-tender, present bowel sounds Extremities: no edema, no tenderness, no cyanosis Laboratory Tests Test 02/05/20 05:15 Sodium Level 135 MMOL/L (136-145) L Potassium Level 3.6 MMOL/L (3.5-5.1) Chloride Level 101 MMOL/L (98-107) Carbon Dioxide Level 23 MMOL/L (21-32) Anion Gap 11 mmol/L (5-15) Blood Urea Nitrogen 5 mg/dL (7-18) L Creatinine 0.7 MG/DL (0.55-1.30) Estimat Glomerular Filtration Rate > 60 mL/min (>60) Glucose Level 94 MG/DL (74-106) Uric Acid 2.5 MG/DL (2.6-7.2) L Calcium Level 8.9 MG/DL (8.5-10.1) Total Bilirubin 0.4 MG/DL (0.2-1.0) Aspartate Amino Transf (AST/SGOT) 18 U/L (15-37) Alanine Aminotransferase (ALT/SGPT) 31 U/L (12-78) Alkaline Phosphatase 115 U/L (46-116) Total Protein 7.7 G/DL (6.4-8.2) Albumin 3.0 G/DL (3.4-5.0) L Globulin 4.7 g/dL Albumin/Globulin Ratio 0.6 (1.0-2.7) L Plan Problems: (1) Electrolyte abnormality (2) Cervical spine fracture Assessment & Plan: craniotomy 3 weeks or so ago wound check wound healing well flap taken well no infection no significant hematoma soft fluid subcutaneous stable dressings clean and dry many yaya from midline forehead to left ear C flap incision given tolerance 1/2 yaya every other staple removed 01/30 will monitor flap and wound. will remove remaining yaya soon thank you Remaining yaya removed 02/01/2020 Patient tolerated well Wound clean dry intact neurosurgery f/u for collar d/c neuro rehab (3) Dehydration (4) Pain (5) Electrolyte imbalance (6) Anemia (7) Hyponatremia Samuel Camara Feb 05, 2020 09:30
--- NOTE | 2020-02-05 11:24 | NUR ---
NURSE NOTES: Pt had physical therapy. No tachy noted when standing up. Pt was able to walk with walker supervised by physical therapy. no distress noted.
[2020-02-05 12:00] VITALS: BP 116/80
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
--- NOTE | 2020-02-05 15:20 | NUR ---
CASE MANAGEMENT:REVIEW 02/05/20 SI:FLUID RESTRICTION . ELECTROLYTE ABNORMALITY . DEHYDRATION. ANEMIA . CERVICAL SPIN FRACTURE SIAHD ~LIKELY URINE CX: STREP SPECIES S/P TRAUMATIC BRAIN INJURY 98.6 73 18 96/62 95% ON RA NA+ 135 URIC ACID 2.5 ALB 3.0 IS:KEPPRA PO BID PROTONIX PO BID COLACE PO TID NORCO Q6HR/PRN SILVADENE CREAM TO BID \: 3E MED SURG UNIT DCP: IRB COMPLIANCE COORDINATOR REHAB PLAN: CONT FLUID RESTRICTION MONITOR SODIUM REHAB EVAL IN AM BY IRB COMPLIANCE COORDINATOR STILL DIZZY
--- NOTE | 2020-02-05 15:24 | NUR ---
*-* INSURANCE *-* COMPLETE RECORDS HAVE BEEN EMAILED TO: *-* RECEIVED AN EMAIL FROM SANJEEV RUSSO REQUESTING COMPLETE RECORDS BE FAXED TO:[email or web address]
[2020-02-05] MEDS ORDERED: Tubing IV Secondary IV ONE ×2 (15:44→17:52)
[2020-02-05 16:00] VITALS: BP 116/80
--- NOTE | 2020-02-05 17:49 | Nephrology Progress Note ---
Assessment/Plan Problem List: (1) Electrolyte imbalance (2) Dehydration (3) Anemia (4) Hyponatremia Assessment: Likely SIADH Assessment ?? Diabetes insipidus, doubt Recent fall from height and brain injury requiring brain surgery at [facility] Electrolyte abnormalities Anemia Plan Serum sodium stable. Continue p.o. fluid restriction. Monitor serum sodium. IV iron for low iron saturation and anemia given Patient has not been any polyuric since in the hospital. The diagnosis of diabetes insipidus is in doubt. Lab work mostly direct the hyponatremia to be SIADH, hence will put on fluid restriction 800 cc per 24 hours Desmopressin is stopped. Urine studies ordered. Reviewed Norvasc is discontinued due to low blood pressure and as needed hydralazine for high blood pressure ordered. Continue per PMD. Subjective ROS Limited/Unobtainable: No Objective Objective Last 24 Hour Vital Signs Date Time Temp Pulse Resp B/P (MAP) Pulse Ox O2 Delivery O2 Flow Rate FiO2 02/05/20 16:00 98.3 99 18 116/80 (92) 95 02/05/20 12:00 98.1 99 18 116/80 (92) 95 02/05/20 09:00 Room Air 02/05/20 08:00 98.6 73 18 96/62 (73) 95 02/05/20 04:30 97.4 80 18 107/73 (84) 94 02/05/20 00:00 18 02/04/20 21:00 Room Air 02/04/20 20:00 98.1 86 18 123/77 (92) 98 02/04/20 18:52 97.8 Intake and Output 02/04/20 02/05/20 19:00 07:00 Intake Total 400 ml 100 ml Output Total 400 ml Balance 400 ml -300 ml Intake Oral 400 ml 100 ml Output Urine Total 400 ml # Voids 3 Laboratory Tests 02/05/20 05:15: Sodium Level 135L, Potassium Level 3.6, Chloride Level 101, Carbon Dioxide Level 23, Anion Gap 11, Blood Urea Nitrogen 5L, Creatinine 0.7, Estimat Glomerular Filtration Rate > 60, Glucose Level 94, Uric Acid 2.5L, Calcium Level 8.9, Total Bilirubin 0.4, Aspartate Amino Transf (AST/SGOT) 18, Alanine Aminotransferase (ALT/SGPT) 31, Alkaline Phosphatase 115, Total Protein 7.7, Albumin 3.0L, Globulin 4.7, Albumin/Globulin Ratio 0.6L Height (Feet): 5 Height (Inches): 3.00 Weight (Pounds): 165 General Appearance: no apparent distress Objective No change Sung Ruiz MD Feb 05, 2020 17:49
[2020-02-05] MEDS ORDERED: NS 275ml ONE (17:52)
--- NOTE | 2020-02-05 19:10 | NUR ---
Received awake alert and oriented. No sob noted. Denies any pain @ this time. Will continue to monitor.
[2020-02-05 20:00] VITALS: BP 106/69
[2020-02-06] VITALS: BP 96/65
[2020-02-06 04:00] VITALS: BP 98/68
--- NOTE | 2020-02-06 04:15 | NUR ---
Pt. was ambulatory and walks in a slow steady pace. Able to void freely. Complained of mild headache, relieved with prn meds.Slept good and in long intervals. No untoward s/s noted.
--- NOTE | 2020-02-06 07:18 | NUR ---
NURSE NOTES: Report received from Al RN, rounds made. German/Turkmen speaking male, AOX4 calm. Respirations even/unlabored on RA. Superior head surgical incision INOCENTE, dry/flaky, scabbed small amount of clear/light yellow drainage noted on pillow case, no foul odor noted. Bilateral arms cortes EXERCISE PHYSIOLOGIST CERTIFIED, skin intact. RH heplock, intact, flushes well. Denies pain, SOB, NV. Urinal at bedside. Reinforced fluid restrictions as ordered. Call light in reach, bed in lowest position, will continue to monitor.
--- NOTE | 2020-02-06 07:20 | NUR ---
HAND-OFF: Report given to Kamilah RUBI.
[2020-02-06 08:00] VITALS: BP 107/69
[2020-02-06] MEDS: Docusate 100mg cap ORAL SCH ×3 (09:16→17:30)
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
[2020-02-06 12:00] VITALS: BP 111/72
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
[2020-02-06] MEDS: HYDROcodone/Acetamin 5/325 tab ORAL PRN ×2 (15:19→20:24)
[2020-02-06 16:00] VITALS: BP 104/65
--- NOTE | 2020-02-06 19:46 | NUR ---
HAND-OFF: Report given to Maxine RN, rounds made, patient stable.
--- NOTE | 2020-02-06 19:47 | NUR ---
NURSE NOTES: Received report & pt from ELICIA Mak. Pt laying in bed, a&ox4, Romanian speaking with little Kyrgyz, in room air. No s/s of acute distress & no c/o 5/10 pain at this time, requesting for [place] & will give. Hard cervical collar on. IV site intact & S/L'd. On seizure precaution. Plan of care discussed.
[2020-02-06 20:00] VITALS: BP 109/70
[2020-02-07] VITALS (7 sets, daily range): BP systolic 98–121; BP diastolic 61–79
--- NOTE | 2020-02-07 07:16 | NUR ---
NURSE NOTES: Report received from Maxine RUBI, rounds made. Thai/Cymro speaking male, AOX4 calm. Respirations even/unlabored on RA. Superior/posterior head surgical incision, remains unchanged INOCENTE, dry/flaky, scabbed small amount of clear/light yellow drainage noted on pillow case, no foul odor noted. Bilateral arms cortes INOCENTE, skin intact. RH heplock, intact, flushes well. Denies pain, SOB, NV. Urinal at bedside. Reinforced fluid restrictions as ordered. Seizure pads in place/seizure precautions. Call light in reach, bed in lowest position, will continue to monitor.
--- NOTE | 2020-02-07 07:16 | NUR ---
NURSE HAND-OFF: Important Events on Shift: None Patient Status: Stable Diet: Cardiac Pending Orders: None Pending Results/Labs:None Pending MD notification:None Latest Vital Signs: Temperature 98.0 , Pulse 61 , B/P 98 /65 , Respiratory Rate 17 , O2 SAT 95 , Room Air, O2 Flow Rate . Vital Sign Comment: None Latest [place] Fall Score: 75 Fall Risk: High Risk Safety Measures: Call light Within Reach, Bed Alarm Zone 1, Side Rails Side Rails x2, Bed position Low and Locked. Fall Precautions: Yellow Socks Door Sign Patient Fall Education Report given to ELICIA Mak.
--- NOTE | 2020-02-07 07:18 | NUR ---
RD ASSESSMENT & RECOMMENDATIONS SEE CARE ACTIVITY FOR COMPLETE ASSESSMENT DAILY ESTIMATED NEEDS: Needs based on Fracture, SIADH/ 60.5kg abw 25-30 kcals/kg 5799-8121 total kcals 1-1.5 g protein/kg 61-92 g total protein 800ml Fluid restriction per MD NUTRITION DIAGNOSIS: Altered nutrition related lab values R/T SIADH as evidenced by hyponatremia, pt on 800ml fluid restriction CURRENT DIET:CARDIAC PO DIET RECOMMENDATIONS: Liberalized REGULAR diet w/ variable intake (texture per CREDIT CONTROL CLERK) ADDITIONAL RECOMMENDATIONS: * Calibrated bedscale wt for accurate CBW * CREDIT CONTROL CLERK evaluation for appropriate texture: s/p recent craniotomy * Monitor lytes (low Na, improved since adm and stable) * Rec adding Ensure Enlive BID w/ variable intake * MVI x 1 * Updated CBC and BMP
--- NOTE | 2020-02-07 08:33 | Neurology Progress Note ---
Interim History Interim History ROS Limited/Unobtainable: No Interim History worked with therapy, pending rehab Objective Physical Exam Last Vital Signs Date Time Temp Pulse Resp B/P (MAP) Pulse Ox O2 Delivery O2 Flow Rate FiO2 02/07/20 08:00 98.0 69 16 112/67 (82) 97 02/06/20 21:00 Room Air General: well developed Head: normocophalic Neurologic Exam Mental Status: oriented x4 Speech: normal speech Language: normal language Cranial Nerves III, IV, : PERRLA, EOMI Stance: normal Gait: stable Impression/Recommendations Problems: (1) Electrolyte abnormality (2) Cervical spine fracture (3) Dehydration (4) Pain Status: progressing Diagnostic Impression 1. 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 POSTCONCUSSIVE SYNDROME 3.. TRAUMATIC DISEQUILIBRIUM SYNDROME 4.. POSTCONCUSSIVE HEADACHE 5.. OCCIPITAL NEURALGIA, BILATERAL 6.. NECK SPASMS WITH BILATERAL PARESTHESIAS R/O RADICULOPATHY 7. ENCEPHALOPATHY 2/2 HYPONATREMIA. Based on the mechanism of injury and denial of previous injury with high medical probability, the accident was the cause of the injury and related symptoms. RECOMMENDATIONS: 1. IVFs and sodium management per nephrology. 2. maintain hydration 3. Monitor orthostatics 4.. Greater and lesser occipital nerve block and Trigger point injections if headache recurs 5. Advance MRI technique including 3 Ericka MRI of the brain without contrast with SWI and DTI and volumetric analysis 6. VAT combo with ENG and vestibular exercises outpatient 7. 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 REMOVAL OF ALONDRA 9. Ziyad Whitmore MD Feb 07, 2020 08:33
[2020-02-07] MEDS: Docusate 100mg cap ORAL SCH ×3 (09:00→18:25)
--- NOTE | 2020-02-07 09:20 | NUR ---
NURSE NOTES: Patient complains of runny nose, watery eyes, sore throat, lower extremity muscle pain. Vitals rechecked at this time. Afebrile 98.3, P 72 RR 18 BP 104/65 O2 saturation 93% RA. Patient slightly diaphoretic, does not want AC on. Dr. Krueger notified, last COVID swab done 01/26 was negative, order for new COVID swab, will follow as ordered.
--- NOTE | 2020-02-07 09:32 | Nephrology Progress Note ---
Assessment/Plan Problem List: (1) Electrolyte imbalance (2) Dehydration (3) Anemia (4) Hyponatremia Assessment: Likely SIADH Assessment ?? Diabetes insipidus, doubt Recent fall from height and brain injury requiring brain surgery at [facility] Electrolyte abnormalities Anemia Plan Serum sodium stable. Continue p.o. fluid restriction. Monitor serum sodium. IV iron for low iron saturation and anemia given Patient has not been any polyuric since in the hospital. The diagnosis of diabetes insipidus is in doubt. Lab work mostly direct the hyponatremia to be SIADH, hence will put on fluid restriction 800 cc per 24 hours Desmopressin is stopped. Urine studies ordered. Reviewed Norvasc is discontinued due to low blood pressure and as needed hydralazine for high blood pressure ordered. Continue per PMD. Subjective ROS Limited/Unobtainable: No Objective Objective Last 24 Hour Vital Signs Date Time Temp Pulse Resp B/P (MAP) Pulse Ox O2 Delivery O2 Flow Rate FiO2 02/07/20 08:00 98.0 69 16 112/67 (82) 97 02/07/20 04:00 98.0 61 17 98/65 (76) 95 02/07/20 00:00 98.2 61 16 103/61 (75) 97 02/06/20 21:00 Room Air 02/06/20 20:00 98.8 63 18 109/70 (83) 97 02/06/20 16:00 98.1 71 18 104/65 (78) 96 02/06/20 12:00 98.3 76 20 111/72 (85) 96 Intake and Output 02/06/20 02/07/20 19:00 07:00 Intake Total 420 ml 100 ml Output Total 250 ml 200 ml Balance 170 ml -100 ml Intake Oral 420 ml 100 ml Output Urine Total 250 ml 200 ml # Voids 1 Height (Feet): 5 Height (Inches): 3.00 Weight (Pounds): 165 General Appearance: no apparent distress Objective No change Sung Ruiz MD Feb 07, 2020 09:32
[2020-02-07] MEDS: HYDROcodone/Acetamin 5/325 tab ORAL PRN ×2 (10:06→16:28)
--- NOTE | 2020-02-07 10:23 | NUR ---
NURSE NOTES: COVID (Rapid) swab obtained at 1010, patient tolerated fair, sent to lab at 1020.
--- NOTE | 2020-02-07 11:02 | NUR ---
PT NOTE COVID (Rapid) swab done, will defer PT treatment at this time until result received.
--- NOTE | 2020-02-07 14:06 | NUR ---
CASE MANAGEMENT:REVIEW 02/06/20 SI:ELECTROLYTE ABNORMALITY . DEHYDRATION. ANEMIA . CERVICAL SPIN FRACTURE FLUID RESTRICTION SIAHD ~LIKELY URINE CX: STREP SPECIES S/P TRAUMATIC BRAIN INJURY 98.7 83 20 107/69 96% ON RA IS:KEPPRA PO BID PROTONIX PO BID COLACE PO TID NORCO Q6HR/PRN SILVADENE CREAM TO BID \: 3E MED SURG UNIT DCP: [facility] REHAB PLAN: REHAB EVAL COMPLETE CASE MANAGEMENT:REVIEW 02/07/20 SI: ELECTROLYTE ABNORMALITY . DEHYDRATION. ANEMIA . CERVICAL SPIN FRACTURE FLUID RESTRICTION . SIAHD ~LIKELY URINE CX: STREP SPECIES S/P TRAUMATIC BRAIN INJURY 98.1 74 16 106/69 98% ON RA IS:KEPPRA PO BID PROTONIX PO BID COLACE PO TID NORCO Q6HR/PRN SILVADENE CREAM TO BID \: 3E MED SURG UNIT DCP: [facility] REHAB PLAN: PENDING BED
--- NOTE | 2020-02-07 14:12 | NUR ---
*-* INSURANCE *-* COMPLETE RECORDS HAVE BEEN EMAILED TO: *-* RECEIVED AN EMAIL FROM SANJEEV RUSSO REQUESTING COMPLETE RECORDS BE FAXED TO:[email or web address]
--- NOTE | 2020-02-07 18:30 | NUR ---
NURSE NOTES: Assisted sponge bath at bedside. Cervical collar off briefly, skin assessed and cleansed, collar reapplied. Upper arms cortes, skin remains intact, no blisters, just skin color difference, silvadene cream applied BID. Bilateral feet very dry, flaky, intact. Skin care provided. Applied vitamin A&D ointment and moisturizer. Superior and posterior head, surgical site, remains unchanged, CARE TRANSITION MANAGER, flaky, dry, dried blood, scant amount light yellow clear drainage noted on pillow case (changed x1 this shift) .
--- NOTE | 2020-02-07 19:28 | NUR ---
NURSE HAND-OFF: Important Events on Shift:COVID rapid swab done at 1010, results negative Patient Status: stable Diet: cardiac, fluid restrictions 800 ml/24 hours Pending Orders: none Pending Results/Labs:UA random NA 02/07 0400 Pending MD notification:none Latest Vital Signs: Temperature 98.4 , Pulse 69 , B/P 121 /79 , Respiratory Rate 18 , O2 SAT 99 , Room Air, O2 Flow Rate . Vital Sign Comment: none Latest Lincoln Fall Score: 75 Fall Risk: High Risk Safety Measures: Call light Within Reach, Bed Alarm Zone 1, Side Rails Side Rails x2, Bed position Low and Locked. Fall Precautions: Yellow Socks Door Sign Patient Fall Education Report given to Ailin RUBI.
--- NOTE | 2020-02-07 19:28 | NUR ---
NURSE HAND-OFF: Important Events on Shift:COVID rapid swab done at 1010, results negative. Patient Status: Diet: Pending Orders: Pending Results/Labs: Pending MD notification: Latest Vital Signs: Temperature 98.4 , Pulse 65 , B/P 100 /65 , Respiratory Rate 18 , O2 SAT 95 , Room Air, O2 Flow Rate . Vital Sign Comment: Latest Lincoln Fall Score: 75 Fall Risk: High Risk Safety Measures: Call light Within Reach, Bed Alarm Zone 1, Side Rails Side Rails x2, Bed position Low and Locked. Fall Precautions: Yellow Socks Door Sign Patient Fall Education Report given to .
--- NOTE | 2020-02-07 19:30 | NUR ---
NURSE NOTES: Patient in bed, alert and oriented x4, no complaint of intolerable pain, no SOB noted. Surgical site looks dry, no active bleeding but there was some dried small amount of yellow to clear drainage noted on pt's pillow. With IV access on the right hand, intact. Bed in lowest and lock engaged. Instructed to use call light for assistance. Call light in reach. Will continue plan of care.
[2020-02-08] VITALS (7 sets, daily range): BP systolic 91–118; BP diastolic 59–78
[2020-02-08 05:43] LABS: BASOPHILS % (AUTO) 1.8 % (0.0-2.0); EOSINOPHILS % (AUTO) 12.1 % (0.0-3.0); HEMATOCRIT 33.7 % (42.0-52.0); HEMOGLOBIN 10.5 G/DL (14.2-18.0); MEAN CORPUSCULAR VOLUME 90 FL (80-99); NEUTROPHILS % (AUTO) 46.1 % (45.0-75.0); PLATELET COUNT 469 K/UL (150-450); RED BLOOD COUNT 3.74 M/UL (4.70-6.10); RED CELL DISTRIBUTION WIDTH 14.3 % (11.6-14.8); WHITE BLOOD COUNT 4.2 K/UL (4.8-10.8)
[2020-02-08 06:05] LABS: ALANINE AMINOTRANSFERASE 22 U/L (12-78); ALBUMIN 2.8 G/DL (3.4-5.0); ALBUMIN/GLOBULIN RATIO 0.6 (1.0-2.7); ALKALINE PHOSPHATASE 105 U/L (46-116); ANION GAP 6 mmol/L (5-15); ASPARTATE AMINO TRANSFERASE 15 U/L (15-37); BILIRUBIN,TOTAL 0.2 MG/DL (0.2-1.0); BLOOD UREA NITROGEN 5 mg/dL (7-18); CALCIUM 9.2 MG/DL (8.5-10.1); CARBON DIOXIDE 28 MMOL/L (21-32); CHLORIDE 101 MMOL/L (98-107); CREATININE 0.7 MG/DL (0.55-1.30); SODIUM 135 MMOL/L (136-145)
--- NOTE | 2020-02-08 07:33 | NUR ---
NURSE HAND-OFF: Important Events on Shift:Urine collected for lab order Patient Status: Stable Diet: Cardiac, Fluid Restriction 800cc/day Pending Orders: none Pending Results/Labs:Uric Acid, CMP, Osmolality Serum, Sodium Random Urine, CBC Pending MD notification:none Latest Vital Signs: Temperature 98.2 , Pulse 59 , B/P 102/63 , Respiratory Rate 18 , O2 SAT 98 , Room Air, O2 Flow Rate none . Vital Sign Comment: none Latest Lincoln Fall Score: 35 Fall Risk: Medium Risk Safety Measures: Call light Within Reach, Bed Alarm Zone 1, Side Rails Side Rails x2, Bed position Low and Locked. Fall Precautions: Door Sign Patient Fall Education Report given to ELICIA Delgado.
--- NOTE | 2020-02-08 07:58 | NUR ---
NURSE NOTES: Report received from Miguelina RUBI. Patient seen on rounds, AxOx4, Kitt[place] speaking, not in distress, no complaints of pain at this time. Pt noted with craniotomy surgical incision open to air, site is dry with scabbing. PIV on right hand patent and intact. Bed low and locked, siderails up x2, call light placed within reach and instructed to call nurse for assistance. Will continue to monitor.
[2020-02-08] MEDS: Docusate 100mg cap ORAL SCH ×3 (08:44→17:20)
[2020-02-08] MEDS: HYDROcodone/Acetamin 5/325 tab ORAL PRN ×2 (08:45→15:31)
--- NOTE | 2020-02-08 09:01 | Nephrology Progress Note ---
Assessment/Plan Problem List: (1) Electrolyte imbalance (2) Dehydration (3) Anemia (4) Hyponatremia Assessment: Likely SIADH Assessment ?? Diabetes insipidus, doubt Recent fall from height and brain injury requiring brain surgery at [facility] Electrolyte abnormalities Anemia Plan February 07: All noted. Lab reviewed. No intravenous medication (IV fluids, and or intravenous iron), is needed for patient. Serum sodium stable. Continue p.o. fluid restriction. Monitor serum sodium. IV iron for low iron saturation and anemia given Patient has not been any polyuric since in the hospital. The diagnosis of diabetes insipidus is in doubt. Lab work mostly direct the hyponatremia to be SIADH, hence will put on fluid restriction 800 cc per 24 hours Desmopressin is stopped. Urine studies ordered. Reviewed Norvasc is discontinued due to low blood pressure and as needed hydralazine for high blood pressure ordered. Continue per PMD. Subjective ROS Limited/Unobtainable: No Objective Objective Last 24 Hour Vital Signs Date Time Temp Pulse Resp B/P (MAP) Pulse Ox O2 Delivery O2 Flow Rate FiO2 02/08/20 04:00 98.2 59 18 102/63 (76) 98 02/08/20 00:00 98.0 70 18 118/65 (82) 97 02/07/20 20:45 Room Air 02/07/20 20:00 98.4 69 18 121/79 (93) 99 02/07/20 16:00 98.4 65 18 100/65 (77) 95 02/07/20 11:56 98.1 74 16 106/69 (81) 98 02/07/20 09:20 98.3 72 18 104/65 (78) 93 02/07/20 09:00 Room Air Intake and Output 02/07/20 02/08/20 19:00 07:00 Intake Total 700 ml 100 ml Output Total 250 ml 100 ml Balance 450 ml 0 ml Intake Oral 700 ml 100 ml Output Urine Total 250 ml 100 ml # Voids 1 Current Medications Medications (Trade) Dose Ordered Sig/Anton Route PRN Reason Start Time Stop Time Status Last Admin Dose Admin Acetaminophen (Tylenol) 650 mg Q6H PRN ORAL For Pain 01/27/20 21:45 02/26/20 21:44 02/05/20 20:18 Acetaminophen/ Hydrocodone Bitart ([place] 5/325) 1 tab Q4H PRN ORAL Moderate Pain (Pain Scale 4-6) 02/06/20 14:15 02/13/20 14:14 02/08/20 08:45 Docusate Sodium (Colace) 100 mg TID ORAL 01/28/20 13:00 02/26/20 21:44 02/08/20 08:44 Hydralazine HCl (Apresoline) 25 mg Q4H PRN ORAL BP over 160 systolic 01/29/20 12:00 04/28/20 11:59 Levetiracetam (Keppra) 500 mg Q12HR ORAL 01/27/20 21:45 02/26/20 21:44 02/08/20 08:44 Magnesium Hydroxide (Mom) 30 ml DAILYPRN PRN ORAL Constipation 01/27/20 21:45 02/26/20 21:44 02/05/20 04:56 Ondansetron HCl (Zofran ODT) 4 mg Q6H PRN ORAL Nausea & Vomiting 01/27/20 21:45 02/26/20 21:44 Pantoprazole (Protonix) 40 mg EVERY 12 HOURS ORAL 01/28/20 21:00 02/27/20 20:59 02/08/20 08:44 Silver Sulfadiazine (Silvadene Cream 25gm) 1 applic TWICE A DAY TOPIC 01/28/20 09:00 04/27/20 08:59 02/08/20 08:44 Laboratory Tests 02/08/20 05:00: White Blood Count 4.2L, Red Blood Count 3.74L, Hemoglobin 10.5L, Hematocrit 33.7L, Mean Corpuscular Volume 90, Mean Corpuscular Hemoglobin 28.2, Mean Corpuscular Hemoglobin Concent 31.2L, Red Cell Distribution Width 14.3, Platelet Count 469H, Mean Platelet Volume 4.9L, Neutrophils (%) (Auto) 46.1, Lymphocytes (%) (Auto) 29.0, Monocytes (%) (Auto) 11.0H, Eosinophils (%) (Auto) 12.1H, Basophils (%) (Auto) 1.8, Sodium Level 135L, Potassium Level 4.0, Chloride Level 101, Carbon Dioxide Level 28, Anion Gap 6, Blood Urea Nitrogen 5L , Creatinine 0.7, Estimat Glomerular Filtration Rate > 60, Glucose Level 93, Osmolality 299, Uric Acid 2.5L, Calcium Level 9.2, Total Bilirubin 0.2, Aspartate Amino Transf (AST/SGOT) 15, Alanine Aminotransferase (ALT/SGPT) 22, Alkaline Phosphatase 105, Total Protein 7.2, Albumin 2.8L, Globulin 4.4, Albumin /Globulin Ratio 0.6L 02/08/20 05:45: Urine Random Sodium 114H Height (Feet): 5 Height (Inches): 3.00 Weight (Pounds): 165 General Appearance: no apparent distress Objective No change Sung Ruiz MD Feb 08, 2020 09:01
--- NOTE | 2020-02-08 16:12 | Neurology Progress Note ---
Interim History Interim History ROS Limited/Unobtainable: No Interim History still dizzy, no CORDOBA today Objective Physical Exam Last Vital Signs Date Time Temp Pulse Resp B/P (MAP) Pulse Ox O2 Delivery O2 Flow Rate FiO2 02/08/20 12:00 98.6 67 17 91/60 (70) 94 02/08/20 09:00 Room Air Laboratory Tests Test 02/08/20 05:00 02/08/20 05:45 White Blood Count 4.2 K/UL (4.8-10.8) L Red Blood Count 3.74 M/UL (4.70-6.10) L Hemoglobin 10.5 G/DL (14.2-18.0) L Hematocrit 33.7 % (42.0-52.0) L Mean Corpuscular Volume 90 FL (80-99) Mean Corpuscular Hemoglobin 28.2 PG (27.0-31.0) Mean Corpuscular Hemoglobin Concent 31.2 G/DL (32.0-36.0) L Red Cell Distribution Width 14.3 % (11.6-14.8) Platelet Count 469 K/UL (150-450) H Mean Platelet Volume 4.9 FL (6.5-10.1) L Neutrophils (%) (Auto) 46.1 % (45.0-75.0) Lymphocytes (%) (Auto) 29.0 % (20.0-45.0) Monocytes (%) (Auto) 11.0 % (1.0-10.0) H Eosinophils (%) (Auto) 12.1 % (0.0-3.0) H Basophils (%) (Auto) 1.8 % (0.0-2.0) Sodium Level 135 MMOL/L (136-145) L Potassium Level 4.0 MMOL/L (3.5-5.1) Chloride Level 101 MMOL/L (98-107) Carbon Dioxide Level 28 MMOL/L (21-32) Anion Gap 6 mmol/L (5-15) Blood Urea Nitrogen 5 mg/dL (7-18) L Creatinine 0.7 MG/DL (0.55-1.30) Estimat Glomerular Filtration Rate > 60 mL/min (>60) Glucose Level 93 MG/DL (74-106) Osmolality 299 mOsm/kg (297-317) Uric Acid 2.5 MG/DL (2.6-7.2) L Calcium Level 9.2 MG/DL (8.5-10.1) Total Bilirubin 0.2 MG/DL (0.2-1.0) Aspartate Amino Transf (AST/SGOT) 15 U/L (15-37) Alanine Aminotransferase (ALT/SGPT) 22 U/L (12-78) Alkaline Phosphatase 105 U/L (46-116) Total Protein 7.2 G/DL (6.4-8.2) Albumin 2.8 G/DL (3.4-5.0) L Globulin 4.4 g/dL Albumin/Globulin Ratio 0.6 (1.0-2.7) L Urine Random Sodium 114 mmol/L (20-110) H General: well developed Head: normocophalic Neurologic Exam Mental Status: oriented x4 Speech: normal speech Language: normal language Cranial Nerves III, IV, : PERRLA, EOMI Stance: normal Gait: stable Impression/Recommendations Problems: (1) Electrolyte abnormality (2) Cervical spine fracture (3) Dehydration (4) Pain Status: progressing Diagnostic Impression 1. 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 POSTCONCUSSIVE SYNDROME 3.. TRAUMATIC DISEQUILIBRIUM SYNDROME 4.. POSTCONCUSSIVE HEADACHE 5.. OCCIPITAL NEURALGIA, BILATERAL 6.. NECK SPASMS WITH BILATERAL PARESTHESIAS R/O RADICULOPATHY 7. ENCEPHALOPATHY 2/2 HYPONATREMIA. Based on the mechanism of injury and denial of previous injury with high medical probability, the accident was the cause of the injury and related symptoms. RECOMMENDATIONS: 1. sodium management per nephrology. 2. Stable for discharge to rehab 3. Monitor orthostatics 4.. Greater and lesser occipital nerve block and Trigger point injections if headache recurs 5. Advance MRI technique including 3 Ericka MRI of the brain without contrast with SWI and DTI and volumetric analysis outpatient 6. 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
--- NOTE | 2020-02-08 19:10 | NUR ---
NURSE HAND-OFF: Important Events on Shift: No adverse events noted Patient Status: Stable Diet: Cardiac Pending Orders:NA Pending Results/Labs: Pending MD notification: Latest Vital Signs: Temperature 98.0 , Pulse 72 , B/P 93 /59 , Respiratory Rate 18 , O2 SAT 95 , Room Air, O2 Flow Rate . Vital Sign Comment: Latest Lincoln Fall Score: 75 Fall Risk: High Risk Safety Measures: Call light Within Reach, Bed Alarm Zone 1, Side Rails Side Rails x2, Bed position Low and Locked. Fall Precautions: Yellow Socks Door Sign Patient Fall Education Report given to Leslie RUBI.
[2020-02-09 04:00] VITALS: BP 94/63
--- NOTE | 2020-02-09 06:47 | NUR ---
NURSE HAND-OFF: Important Events on Shift: NONE; SLEPT MOST OF THE NIGHT; AM CARE OFFERED; DEFERRED UNTIL BREAKFAST PER PATIENT'S REQUEST Patient Status: STABLE Diet: CARDIAC WITH FLUID RESTRICTION OF 800ML/24 HOUR Pending Orders: NONE Pending Results/Labs:NONE Pending MD notification:NONE Latest Vital Signs: Temperature 97.4 , Pulse 61 , B/P 94 /63 , Respiratory Rate 18 , O2 SAT 97 , Room Air, O2 Flow Rate . Vital Sign Comment: STABLE Latest Lincoln Fall Score: 75 Fall Risk: High Risk Safety Measures: Call light Within Reach, Bed Alarm Zone 1, Side Rails Side Rails x2, Bed position Low and Locked. Fall Precautions: YES IN PLACE Yellow Socks: YES Door Sign: YES Patient Fall Education: YES Report given to BIPIN GUERRERO.
--- NOTE | 2020-02-09 07:30 | NUR ---
NURSE NOTES: Patient lying in bed sleeping. Complain of generalized pain 3/10 and no need pain medication for now. Will continue to monitor. Surgical site intact and dry and on cervical collar. IV dressing intact and dry. Bed lowest position. Call light within reach. Will continue to monitor.
[2020-02-09 08:00] VITALS: BP 94/61
[2020-02-09] MEDS: Docusate 100mg cap ORAL SCH ×3 (08:52→17:21)
[2020-02-09] MEDS: HYDROcodone/Acetamin 5/325 tab ORAL PRN ×2 (08:56→17:21)
[2020-02-09 12:00] VITALS: BP 97/67
--- NOTE | 2020-02-09 12:35 | Nephrology Progress Note ---
Assessment/Plan Problem List: (1) Electrolyte imbalance (2) Dehydration (3) Anemia (4) Hyponatremia Assessment: Likely SIADH Assessment ?? Diabetes insipidus, doubt Recent fall from height and brain injury requiring brain surgery at [facility] Electrolyte abnormalities Anemia Plan February 08: Stable from renal standpoint of view February 07: All noted. Lab reviewed. No intravenous medication (IV fluids, and or intravenous iron), is needed for patient. Serum sodium stable. Continue p.o. fluid restriction. Monitor serum sodium. IV iron for low iron saturation and anemia given Patient has not been any polyuric since in the hospital. The diagnosis of diabetes insipidus is in doubt. Lab work mostly direct the hyponatremia to be SIADH, hence will put on fluid restriction 800 cc per 24 hours Desmopressin is stopped. Urine studies ordered. Reviewed Norvasc is discontinued due to low blood pressure and as needed hydralazine for high blood pressure ordered. Continue per PMD. Subjective ROS Limited/Unobtainable: No Objective Objective Last 24 Hour Vital Signs Date Time Temp Pulse Resp B/P (MAP) Pulse Ox O2 Delivery O2 Flow Rate FiO2 02/09/20 12:00 97.5 59 16 97/67 (77) 95 02/09/20 09:00 Room Air 02/09/20 08:00 98.1 76 16 94/61 (72) 94 02/09/20 04:00 97.4 61 18 94/63 (73) 97 02/08/20 23:58 98.0 66 17 102/78 (86) 100 02/08/20 21:00 Room Air 02/08/20 20:00 97.9 65 18 105/72 (83) 95 02/08/20 16:00 98.0 72 18 93/59 (70) 95 Intake and Output 02/08/20 02/09/20 18:59 06:59 Intake Total 600 ml 120 ml Output Total 300 ml 200 ml Balance 300 ml -80 ml Intake Oral 600 ml 120 ml Output Urine Total 300 ml 200 ml # Voids 2 Current Medications Medications (Trade) Dose Ordered Sig/Anton Route PRN Reason Start Time Stop Time Status Last Admin Dose Admin Acetaminophen (Tylenol) 650 mg Q6H PRN ORAL For Pain 01/27/20 21:45 02/26/20 21:44 02/05/20 20:18 Acetaminophen/ Hydrocodone Bitart ([place] 5/325) 1 tab Q4H PRN ORAL Moderate Pain (Pain Scale 4-6) 02/06/20 14:15 02/13/20 14:14 02/09/20 08:56 Docusate Sodium (Colace) 100 mg TID ORAL 01/28/20 13:00 02/26/20 21:44 02/09/20 12:16 Hydralazine HCl (Apresoline) 25 mg Q4H PRN ORAL BP over 160 systolic 01/29/20 12:00 04/28/20 11:59 Levetiracetam (Keppra) 500 mg Q12HR ORAL 01/27/20 21:45 02/26/20 21:44 02/09/20 08:52 Magnesium Hydroxide (Mom) 30 ml DAILYPRN PRN ORAL Constipation 01/27/20 21:45 02/26/20 21:44 02/05/20 04:56 Ondansetron HCl (Zofran ODT) 4 mg Q6H PRN ORAL Nausea & Vomiting 01/27/20 21:45 02/26/20 21:44 Pantoprazole (Protonix) 40 mg EVERY 12 HOURS ORAL 01/28/20 21:00 02/27/20 20:59 02/09/20 08:52 Silver Sulfadiazine (Silvadene Cream 25gm) 1 applic TWICE A DAY TOPIC 01/28/20 09:00 04/27/20 08:59 02/09/20 08:52 Height (Feet): 5 Height (Inches): 3.00 Weight (Pounds): 165 Objective No change Sung Ruiz MD Feb 09, 2020 12:35
--- NOTE | 2020-02-09 12:47 | NUR ---
CASE MANAGEMENT:REVIEW 02/08/20 SI: ELECTROLYTE ABNORMALITY . DEHYDRATION. ANEMIA . CERVICAL SPIN FRACTURE FLUID RESTRICTION . 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 DEHYDRATION. ANEMIA . CERVICAL SPIN FRACTURE FLUID RESTRICTION . 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
--- NOTE | 2020-02-09 14:13 | Neurology Progress Note ---
Interim History Interim History ROS Limited/Unobtainable: No Interim History no new deficits, pending transfer to rehab, stable, mild dizziness Objective Physical Exam Last Vital Signs Date Time Temp Pulse Resp B/P (MAP) Pulse Ox O2 Delivery O2 Flow Rate FiO2 02/09/20 12:00 97.5 59 16 97/67 (77) 95 02/09/20 09:00 Room Air General: well developed Head: normocophalic Neurologic Exam Mental Status: oriented x4 Speech: normal speech Language: normal language Cranial Nerves III, IV, : PERRLA, EOMI Stance: normal Gait: stable Impression/Recommendations Problems: (1) Electrolyte abnormality (2) Cervical spine fracture (3) Dehydration (4) Pain Status: progressing Diagnostic Impression 1. 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 POSTCONCUSSIVE SYNDROME 3.. TRAUMATIC DISEQUILIBRIUM SYNDROME 4.. POSTCONCUSSIVE HEADACHE 5.. OCCIPITAL NEURALGIA, BILATERAL 6.. NECK SPASMS WITH BILATERAL PARESTHESIAS R/O RADICULOPATHY 7. ENCEPHALOPATHY 2/2 HYPONATREMIA. Based on the mechanism of injury and denial of previous injury with high medical probability, the accident was the cause of the injury and related symptoms. RECOMMENDATIONS: 1. sodium management per nephrology. 2. Stable for discharge to rehab 3. Monitor orthostatics 4.. Greater and lesser occipital nerve block and Trigger point injections if headache recurs 5. Advance MRI technique including 3 Ericka MRI of the brain without contrast with SWI and DTI and volumetric analysis outpatient 6. VAT combo with ENG and vestibular exercises outpatient 7. 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
[2020-02-09 16:00] VITALS: BP 99/61
--- NOTE | 2020-02-09 19:05 | NUR ---
NURSE HAND-OFF: Important Events on Shift: Wait for Bed from Neuro facility Patient Status: Stable Diet: Cardiac Pending Orders: N/A Pending Results/Labs: N/A Pending MD notification: N/A Latest Vital Signs: Temperature 98.8 , Pulse 68 , B/P 99 /61 , Respiratory Rate 18 , O2 SAT 99 , Room Air, O2 Flow Rate . Vital Sign Comment: Stable Latest Lincoln Fall Score: 75 Fall Risk: High Risk Safety Measures: Call light Within Reach, Bed Alarm Zone 1, Side Rails Side Rails x2, Bed position Low and Locked. Fall Precautions: Fall preventive measures applied Yellow Socks Yellow Gown Door Sign Patient Fall Education Report given to Leslie RUBI. Patient in stable condition.
[2020-02-09 19:53] VITALS: BP 105/71
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
[2020-02-09 23:39] VITALS: BP 94/62
[2020-02-10 04:00] VITALS: BP 129/70
--- NOTE | 2020-02-10 05:40 | NUR ---
NURSE HAND-OFF: Important Events on Shift: No significant changes noted this shift. Patient Status: Stable Diet: cardiac diet with fluid restriction of 800 mls/24 hour Pending Orders: none Pending Results/Labs:none Pending MD notification:none Latest Vital Signs: Temperature 98.1 , Pulse 65 , B/P 129 /70 , Respiratory Rate 17 , O2 SAT 97 , Room Air, O2 Flow Rate . Vital Sign Comment: stable;afebrile Latest Lincoln Fall Score: 75 Fall Risk: High Risk Safety Measures: Call light Within Reach, Bed Alarm Zone 1, Side Rails Side Rails x2, Bed position Low and Locked. Fall Precautions: in place Yellow Socks worn by patient Door Sign in place Patient Fall Education done; reinforcement needed Report given to . Addendum: 02/10/20 at 0650 by JUDE MCMAHON RN Report will be given to Zakia Bustamante
--- NOTE | 2020-02-10 07:30 | NUR ---
NURSE NOTES: Patient is in bed awake and able to verbalize needs. Stable. Denies pain or SOB. Neck collar on. Patient informed of fluid restriction, verbalized understanding. Skin is c/d/i. Patient is in bed in locked and lowest position with call light within reach. All needs met at this time. WIll continue to monitor.
[2020-02-10 08:00] VITALS: BP 91/60
[2020-02-10] MEDS: Docusate 100mg cap ORAL SCH ×3 (08:25→17:07)
[2020-02-10] MEDS: HYDROcodone/Acetamin 5/325 tab ORAL PRN ×2 (08:30→12:41)
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
[2020-02-10 12:00] VITALS: BP 133/75
--- NOTE | 2020-02-10 14:20 | NUR ---
CASE MANAGEMENT:REVIEW 02/10/20 SI: ELECTROLYTE ABNORMALITY . DEHYDRATION. ANEMIA . CERVICAL SPIN FRACTURE FLUID RESTRICTION . SIAHD ~LIKELY URINE CX: STREP SPECIES S/P TRAUMATIC BRAIN INJURY 98.2 83 19 133/75 99% ON RA IS:KEPPRA PO BID PROTONIX PO BID COLACE PO TID NORCO Q6HR/PRN SILVADENE CREAM TO BID \: 3E MED SURG UNIT DCP: [facility] REHAB PLAN: PENDING BED
[2020-02-10 16:00] VITALS: BP 94/66
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
--- NOTE | 2020-02-10 19:21 | NUR ---
NURSE HAND-OFF: Important Events on Shift:[n/a] Patient Status: stable Diet: cardiac Pending Orders: n/a Pending Results/Labs:n/a Pending MD notification:n/a Latest Vital Signs: Temperature 98.1 , Pulse 69 , B/P 94 /66 , Respiratory Rate 20 , O2 SAT 99 , Room Air, O2 Flow Rate . Vital Sign Comment: n/a Latest Lincoln Fall Score: 75 Fall Risk: High Risk Safety Measures: Call light Within Reach, Bed Alarm Zone 1, Side Rails Side Rails x2, Bed position Low and Locked. Fall Precautions: Yellow Socks Door Sign Patient Fall Education Report given to Darius LIND.
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
[2020-02-10 20:00] VITALS: BP 105/72
[2020-02-11 04:00] VITALS: BP 112/70
--- NOTE | 2020-02-11 07:10 | NUR ---
NURSE HAND-OFF: Important Events on Shift:urine output, little amount of drainage on surgical site Patient Status: Diet: Pending Orders: Pending Results/Labs: Pending MD notification: Latest Vital Signs: Temperature 98.1 , Pulse 60 , B/P 112 /70 , Respiratory Rate 18 , O2 SAT 95 , Room Air, O2 Flow Rate . Vital Sign Comment: Latest Lincoln Fall Score: 75 Fall Risk: High Risk Safety Measures: Call light Within Reach, Bed Alarm Zone 1, Side Rails Side Rails x2, Bed position Low and Locked. Fall Precautions: Yellow Socks Door Sign Patient Fall Education Report given to .
--- NOTE | 2020-02-11 07:28 | NUR ---
NURSE NOTES: Patient is in bed awake and able to verbalize needs. Stable. Denies pain or SOB. Small amount of drainage noted on pillow. Patient instructed to use call light for assistance, verbalized understanding. All safety measures provided. Plan of care discussed with patient. Patient is in bed in locked and lowest position with call light within reach. Will continue to monitor.
[2020-02-11 08:00] VITALS: BP 122/64
[2020-02-11] MEDS: Docusate 100mg cap ORAL SCH (08:26)
[2020-02-11] MEDS: HYDROcodone/Acetamin 5/325 tab ORAL PRN (08:30)
[2020-02-11] MEDS ORDERED: ACETAMINOPHEN325 M1 ORAL (09:48)
[2020-02-11] MEDS ORDERED: NORCO 5-325 TA1 EAC1 ORAL (09:49)
[2020-02-11] MEDS ORDERED: DOCUSATE SODIU100 MG ORAL (09:49)
[2020-02-11] MEDS ORDERED: HYDRALAZINE HCL25 M1 ORAL (09:49)
[2020-02-11] MEDS ORDERED: KEPPRA500 M4 ORAL (09:50)
[2020-02-11] MEDS ORDERED: ZOFRAN4 M3 ORAL (09:51)
[2020-02-11] MEDS ORDERED: MILK OF MA400 MG/51 ORAL (09:51)
[2020-02-11] MEDS ORDERED: PANTOPRAZOLE SO40 MG ORAL (09:52)
[2020-02-11] MEDS ORDERED: SILVER SULFADIA50 GM TP (09:52)
--- NOTE | 2020-02-11 10:01 | NUR ---
TUBE DRAWER NOTES RECEIVE A CALL FROM SHANDA FROM [facility],A TEAM WILL BE HERE AT NOON TO TRANSPORT THE PATIENT TO THE NEURO REHAB. NURSE MADE AWARE.
--- NOTE | 2020-02-11 11:56 | NUR ---
NURSE NOTES: report given to Svetlana MELVIN at [facility]. Awaiting milk pickup driver.
[2020-02-11 12:00] VITALS: BP 137/62
--- NOTE | 2020-02-11 12:27 | NUR ---
NURSE NOTES: [facility] to the [facility] as ordered. Neuro team picked up patient and assisted patient into private vehicle. Patient is stable. Denies pain or SOB. Patient has all belongings. Medication in sealed bag sent with patient. Discharge instructions and medication reconciliation packet given to neuro team. IV removed. Skin is c/d/i. Surgical site assessed by surgeon prior to discharge.
--- NOTE | 2020-02-11 13:02 | Surgery Progress Note ---
Surgery Progress Note Subjective Symptoms: improved Additional Comments improved no complaints nursing care provided with removal of scabs from wounds wound c/d/i prior drain site with eschar that was removed by myself at bedside to allow healing Objective Last 24 Hour Vital Signs Date Time Temp Pulse Resp B/P (MAP) Pulse Ox O2 Delivery O2 Flow Rate FiO2 02/11/20 12:00 98.2 66 18 137/62 (87) 96 02/11/20 08:00 98.5 73 18 122/64 (83) 95 02/11/20 07:45 Room Air 02/11/20 04:00 98.1 60 18 112/70 (84) 95 02/10/20 21:00 Room Air 02/10/20 20:00 98.2 64 18 105/72 (83) 96 02/10/20 16:00 98.1 69 20 94/66 (75) 99 I&O Intake and Output 02/10/20 02/11/20 19:00 07:00 Intake Total 120 ml 100 ml Output Total 600 ml 450 ml Balance -480 ml -350 ml Intake Oral 120 ml 100 ml Output Urine Total 600 ml 450 ml # Voids 2 Dressing: dry Wound: clean Cardiovascular: RSR Respiratory: clear Abdomen: soft, non-tender, present bowel sounds Extremities: no edema, no tenderness, no cyanosis Plan Problems: (1) Electrolyte abnormality (2) Cervical spine fracture Assessment & Plan: craniotomy 3 weeks or so ago wound check wound healing well flap taken well no infection no significant hematoma soft fluid subcutaneous stable dressings clean and dry many yaya from midline forehead to left ear C flap incision given tolerance 1/2 yaya every other staple removed 01/30 will monitor flap and wound. will remove remaining yaya soon thank you Remaining yaya removed 02/01/2020 Patient tolerated well Wound clean dry intact neurosurgery f/u for collar d/c neuro rehab okay to d/c wound healing well (3) Dehydration (4) Pain (5) Electrolyte imbalance (6) Anemia (7) Hyponatremia Samuel Camara Feb 11, 2020 13:02
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
== END 2020-02-11 12:33 | disposition short-term general hospital (02) | DRG 643 ==
LOC: EDBD 18:52 → EMR 19:18 → 3E 19:25 → EDBEDREQSVC 20:17 → EDBEDREQ 20:31
DX: E22.2 Syndrome of inappropriate secretion of antidiuretic hormone (principal); G93.41 Metabolic encephalopathy; E87.8 Other disorders of electrolyte and fluid balance, not elsewhere classified; D64.9 Anemia, unspecified; F07.81 Postconcussional syndrome; S12.690D Other displaced fracture of seventh cervical vertebra, subsequent encounter for fracture with routine healing; S22.019D Unspecified fracture of first thoracic vertebra, subsequent encounter for fracture with routine healing; S06.899D Other specified intracranial injury with loss of consciousness of unspecified duration, subsequent encounter; T22.011D Burn of unspecified degree of right forearm, subsequent encounter; T20.07XD Burn of unspecified degree of neck, subsequent encounter; T20.00XD Burn of unspecified degree of head, face, and neck, unspecified site, subsequent encounter; W17.89XD Other fall from one level to another, subsequent encounter; W86.1XXD Exposure to industrial wiring, appliances and electrical machinery, subsequent encounter; M54.81 Occipital neuralgia; E86.0 Dehydration; R25.2 Cramp and spasm; R20.2 Paresthesia of skin
CPT/HCPCS: 36415; 70450; 71045; 72125; 80048; 80053; 80061; 81001; 81003; 81050; 82533; 82570; 82607; 82728; 82746; 82977; 83036; 83540; 83550; 83690; 83735; 83880; 83930; 83935; 84100; 84133; 84156; 84300; 84439; 84443; 84481; 84484; 84550; 85025; 86140; 87086; 87181; 93005; 93970; 99285; U0002